=== PATIENT | male | born 1955 | race Caucasian/White ===

== ENCOUNTER → 2017-04-24 07:11 | Outpatient (CLI) | payer OTHER, SELFPAY ==
--- NOTE | 2017-04-24 07:18 | XR_ITS ---
XR chest 2V HISTORY: ITS.REASON: COUGH ORDERING PHYSICIAN: Kylie Browning MD PATIENT AGE: 61 years COMPARISON: 12/01/2012 FINDINGS: The cardiomediastinal silhouette and pulmonary vascularity are within normal limits. The lungs are clear without infiltrates, suspicious nodules, or pleural effusions. No acute bony abnormalities. IMPRESSION: Negative chest, no acute finding
== END ==
PROVIDERS: PCP Family Medicine; Visit Provider Family Medicine
DX: R05 Cough (principal)
CPT/HCPCS: 71046

== ENCOUNTER 2017-11-17 03:50 | Observation (INO) ==
--- NOTE | 2017-11-17 04:18 | Emergency Department Note ---
ED Disposition Clinical Impression: Renal colic on right side, Pancreatitis, Hyperglycemia due to type 2 diabetes mellitus Disposition: Admitted As Inpatient Condition on Discharge: Fair Instructions: DI for Acute Abdomen Referrals: Kylie Browning MD [Primary Care Provider] - - Critical Care Critical Care Time: No Attestation: On 11/17/17, the high probability of a clinically significant, sudden or life threatening deterioration of the following system(s) required my full and direct attention, intervention and personal management. The time I documented below is in addition to time spent performing reported procedures but includes the following listed in this critical care notation. Medical Decision Making - Medical Records Medical records reviewed: Yes: I reviewed the patient's medical records. - Ryan Inquiry Pt receiving controlled substance: No Ryan was queried for this patient: No Reason not queried -: Emergent pt cond-no time Vital Signs: 11/17/17 03:56 11/17/17 05:22 11/17/17 06:04 Pulse Rate [Right Brachial] 75 91 H 103 H Respiratory Rate 14 14 18 Blood Pressure [Right Arm] 180/115 151/80 158/93 Blood Pressure Mean [Right Arm] 136 103 114 Blood Pressure Source [Right Arm] Automatic Cuff Automatic Cuff Blood Pressure Position [Right Arm] Sitting Sitting 02 Sat by Pulse Oximetry 98 98 93 L Oxygen Delivery Method Room Air Room Air - Lab Data Lab Results 11/17/17 04:02: WBC 7.4, RBC 4.67, Hgb 13.3 L, Hct 41.4 L, MCV 88.6, MCH 28.5, MCHC 32.2, RDW 13.0, Plt Count 231, MPV 7.4, Neut % (Auto) 62.4, Lymph % (Auto) 30.1, [place] % (Auto) 5.3, Eos % (Auto) 1.4, Baso % (Auto) 0.8, Neut # (Auto) 4.6, Lymph # (Auto) 2.2, [place] # (Auto) 0.4, Eos # (Auto) 0.1, Baso # (Auto) 0.1 11/17/17 04:02: Sodium 137, Potassium 3.2 L, Chloride 102, Carbon Dioxide 25, Anion Gap 13.2, BUN 20 H, Creatinine 1.25, Estimated Creat Clear 73, Estimated GFR 58 L, Est GFR ( Amer) 70, Glucose 263 H, Calcium 8.6, Total Bilirubin 0.3, AST 13 L, ALT 31, Alkaline Phosphatase 134 H, Total Protein 6.3 L, Albumin 3.5, Globulin 2.8, Albumin/Globulin Ratio 1.3, Amylase 101, Lipase 947 H 11/17/17 04:02: Lactate 2.3 H Result diagrams: 11/17/17 04:02 11/17/17 04:02 Orders (Tests/Meds): ED MEDICATIONS Generic Name Dose Route Start Last Admin Trade Name Freq PRN Reason Stop Dose Admin Lactated Ringer's 1,000 mls @ 999 mls/hr 11/17/17 06:00 11/17/17 05:55 Lactated Ringer's 1000 Ml Bag IV 11/17/17 07:00 999 mls/hr .Q1H1M LISSETTE Administration Discontinued Medications Generic Name Dose Route Start Last Admin Trade Name Freq PRN Reason Stop Dose Admin Lactated Ringer's 1,000 mls @ 999 mls/hr 11/17/17 04:15 11/17/17 04:06 Lactated Ringer's 1000 Ml Bag IV 11/17/17 05:15 999 mls/hr .Q1H1M LISSETTE Administration Ketorolac Tromethamine 30 mg 11/17/17 04:13 11/17/17 04:52 Toradol 30mg/Ml Vial IV 11/17/17 04:14 30 mg ONCE ONE Administration Morphine Sulfate 4 mg 11/17/17 04:05 11/17/17 04:06 Morphine 4mg/Ml Syringe IV 11/17/17 04:06 4 mg ONCE ONE Administration Morphine Sulfate 4 mg 11/17/17 05:45 11/17/17 05:57 Morphine 4mg/Ml Syringe IV 11/17/17 05:46 4 mg ONCE ONE Administration Ondansetron HCl 4 mg 11/17/17 04:03 11/17/17 04:06 Zofran 4mg/2ml Vial IV 11/17/17 04:04 4 mg ONCE ONE Administration ORDERS Category Date Time Status CT abdomen pelvis wo con Stat Cat Scan 11/17/17 04:03 Taken Urinalysis and Microscopic Stat Lab 11/17/17 04:03 Ordered Blood Culture Stat Micro 11/17/17 04:02 Received - CT Data CT Scan: Abdomen Time Received: 04:[address] Reviewed: Yes: I have reviewed the patient's CT results, I have viewed the radiologist's interpretation Findings Narrative: Mild right hydronephrosis a 3 mm stone is present in the right UVJ there is also nonobstructing right kidney stone rest of the exam is unremarkable Medical Decision Narrative: Differential diagnosis right renal colic acute appendicitis, testicular torsion Patient significantly improved with pain medication and IV hydration glucose is elevated to 265. Patient has elevated lipase which is unlikely to be due from the kidney stone no significant tenderness of the pancreas it is possible it is caused by metformin though this would be an unusual etiology. Patient discussed with Dr. Dias covering for Dr. Ocasio patient will be admitted to observation Abdominal Pain HPI - General Chief Complaint: Abdominal Pain Stated Complaint: abdominal pain;vomiting Time Seen by Provider: 11/17/17 04:00 Mode of Arrival: Ambulatory Limitations: No Limitations Description of Symptoms (Recalled from ER Triage Doc. by RN): Pt c/o right lower abd pain with nausea, vomiting - History of Present Illness HPI narrative: Patient complains of sudden pain at 1:30 in the morning in his right groin and some soreness in the right flank with nausea no previous history of renal colic no previous abdominal surgery previously healthy MD complaint: abdominal pain, flank pain Location: R flank Severity: severe - Related Data Home Medications Medication Instructions Recorded Confirmed Metformin HCl [Metformin 500mg 500 mg PO BID 11/17/17 11/17/17 Tablet] Allergies Allergy/AdvReac Type Severity Reaction Status Date / Time No Known Allergies Allergy Verified 11/17/17 04:01 [facility] History I have reviewed the patient's past medical history: Yes Medical History: Reports:: Diabetes Mellitus Type 2 Denies:: Cancer, Diabetes Mellitus Type 1, MRSA Amputation: No - 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 Alcohol Intake: never - Psychiatric History Expresses thoughts of harming self/others: None Suicide Plan Description: No Plan Family Hx:: Diabetes ROS Obtained: Yes Systems reviewed as appropriate & no additional complaints - Gastrointestinal Gastrointestingal: Reports: abdominal pain, nausea Physical Exam - General General appearance: alert, in distress Comment: In pain - Head Head exam: atraumatic, normocephalic, normal inspection - Eye Eye exam: Present: normal appearance, PERRL, EOMI - ENT ENT exam: Present: normal exam, normal oropharynx, mucous membranes moist, TM's normal bilaterally, normal external ear exam - Neck Neck exam: Present: normal inspection, full ROM, trachea midline. Absent: meningismus, lymphadenopathy - Chest Chest inspection: Present: normal inspection, symmetric chest wall rise. Absent: tenderness - Respiratory Respiratory exam: Present: normal lung sounds bilaterally. Absent: respiratory distress - Cardiovascular Cardiovascular exam: Present: regular rate, normal rhythm. Absent: JVD - Abdominal Exam Abdominal exam: Present: soft, normal bowel sounds. Absent: distention, tenderness, guarding Abdominal tenderness: Present: RLQ, moderate Comment: No inguinal hernias normal scrotal exam no tenderness - exam: Present: normal inspection, normal testicular lie. Absent: testicular tenderness, urethral discharge, scrotal swelling - Extremities Exam Extremities exam: Present: normal inspection, full ROM, normal capillary refill. Absent: calf tenderness - Back Exam Back exam: Present: normal inspection. Absent: tenderness - Neurological Exam Neurological exam: Present: alert, oriented X3 - Psychiatric Psychiatric exam: Present: normal affect, normal mood - Skin Skin exam: Present: warm, dry, intact, normal color - Lymphatic Lymphatic Findings: no adenopathy
[2017-11-17 04:25] LABS: Basophils # 0.1 K/mm3 (0-0.2); Basophils % 0.8 % (0.1-2.0); Eosinophils # 0.1 K/mm3 (0.0-0.4); Eosinophils % 1.4 % (0.1-12.0); Hematocrit 41.4 % (42.0-52.0); Hemoglobin 13.3 g/dL (14.1-18.0); Lymphocytes # 2.2 K/mm3 (0.7-4.5); Lymphocytes % 30.1 K/mm3 (10-50); Mean Corpuscular HGB Conc 32.2 g/dL (31.8-35.4); Mean Corpuscular Hemoglobin 28.5 pg (27.0-31.2); Mean Corpuscular Volume 88.6 fl (80-94); Mean Platelet Volume 7.4 fl (7.4-10.4); Monocytes # 0.4 K/mm3 (0.1-1.0); Monocytes % 5.3 % (1.7-9.3); Neutrophils # 4.6 K/mm3 (1.8-7.8); Neutrophils % 62.4 % (37.0-80.0); Platelet Count 231 K/mm3 (142-424); Red Blood Count 4.67 M/mm3 (4.60-6.20); White Blood Count 7.4 K/mm3 (4.8-10.8)
[2017-11-17 04:39] LABS: Albumin Level 3.5 gm/dL (3.4-5.0); Albumin/Globulin Ratio 1.3 (1.1-1.8); Anion Gap 13.2 mEq/L (5-15); Bilirubin,Total 0.3 mg/dL (0.2-1.0); Calcium 8.6 mg/dL (8.5-10.1); Globulin 2.8 gm/dl (1.3-3.2); Potassium 3.2 mmoL/L (3.5-5.1); Total Protein,Serum 6.3 gm/dL (6.4-8.2)
--- NOTE | 2017-11-17 07:02 | History & Physical Report ---
*Admission Date: 11/17/17 *Chief complaint: Abdominal pain *History of present illness: 62-year-old male with diabetes presented to the emergency department after awakening this morning at approximately 1:30 AM with acute onset of right-sided abdominal pain that began in the front of the abdomen and radiated around to the flank and down towards the testicle. Patient had no significant nausea but did vomit on the way to the emergency department. In the ER he was found to have a 3 mm obstructive kidney stone with mild hydronephrosis. Patient also found to have an elevated lipase level. Patient has been admitted for IV fluids, straining of urine, pain control. [facility] History I have reviewed the patient's past medical history: Yes Medical History: Reports:: Diabetes Mellitus Type 2 Denies:: Cancer, Diabetes Mellitus Type 1, MRSA Amputation: No - *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 Alcohol Intake: never - Psychiatric History Expresses thoughts of harming self/others: None Suicide Plan Description: No Plan *Family Hx:: Diabetes Review of Systems - Constitutional Denies body ache(s), Denies chills - *Cardiovascular Denies chest pain, Denies chest pain at rest - *Respiratory Denies cough, Denies shortness of breath - *Genitourinary Reports difficulty urinating, Denies painful urination, Denies blood in urine Meds Home Medications Medication Instructions Recorded Confirmed Type Metformin HCl [Metformin 500mg 500 mg PO BID 11/17/17 11/17/17 History Tablet] Allergies Allergy/AdvReac Type Severity Reaction Status Date / Time No Known Allergies Allergy Verified 11/17/17 04:01 Exam Vital signs and Labs for Last 24 Hours: Temp Pulse Resp BP Pulse Ox 98.5 F 103 H 20 162/90 97 11/17/17 06:30 11/17/17 06:30 11/17/17 06:30 11/17/17 06:30 11/17/17 06:30 Laboratory Results - last 24 hr 11/17/17 04:02: WBC 7.4, RBC 4.67, Hgb 13.3 L, Hct 41.4 L, MCV 88.6, MCH 28.5, MCHC 32.2, RDW 13.0, Plt Count 231, MPV 7.4, Neut % (Auto) 62.4, Lymph % (Auto) 30.1, [place] % (Auto) 5.3, Eos % (Auto) 1.4, Baso % (Auto) 0.8, Neut # (Auto) 4.6, Lymph # (Auto) 2.2, [place] # (Auto) 0.4, Eos # (Auto) 0.1, Baso # (Auto) 0.1 11/17/17 04:02: Sodium 137, Potassium 3.2 L, Chloride 102, Carbon Dioxide 25, Anion Gap 13.2, BUN 20 H, Creatinine 1.25, Estimated Creat Clear 73, Estimated GFR 58 L, Est GFR ( Amer) 70, Glucose 263 H, Calcium 8.6, Total Bilirubin 0.3, AST 13 L, ALT 31, Alkaline Phosphatase 134 H, Total Protein 6.3 L, Albumin 3.5, Globulin 2.8, Albumin/Globulin Ratio 1.3, Amylase 101, Lipase 947 H 11/17/17 04:02: Lactate 2.3 H I & O for Last 24 hours: Intake & Output 11/14/17 11/15/17 11/16/17 11/17/17 11:59 11:59 11:59 11:59 Weight 185 lb 8 oz Narrative: Patient is awake and alert sitting up in bed. Oropharynx is moist. Neck is without lymphadenopathy or carotid bruits. Lungs are clear to auscultation. Heart has a regular rate and rhythm. Abdomen is soft with slight epigastric tenderness, mild right lower quadrant tenderness. Back has right-sided CVA tenderness. Neurologically there are no deficits Assessment and Plan (1) Urinary tract obstruction by kidney stone Current visit: Yes Status: Acute Category: Medical Code(s): N20.0 - Calculus of kidney; N13.8 - Other obstructive and reflux uropathy (2) Ureterolithiasis Current visit: Yes Status: Acute Category: Medical Code(s): N20.1 - Calculus of ureter (3) Elevated lipase Current visit: Yes Status: Acute Category: Medical Code(s): R74.8 - Abnormal levels of other serum enzymes (4) Uncontrolled type 2 diabetes mellitus Current visit: Yes Status: Acute Category: Medical Code(s): E11.65 - Type 2 diabetes mellitus with hyperglycemia - Assessment and plan all Dx Assessment and Plan for all problems:: 1. IV fluids and IV narcotics for pain control. Strain urine 2. Repeat lipase in a.m. 3. Await official radiology report of patient's CT scan 4. Clear liquid diet. 5. Sliding scale insulin coverage
--- NOTE | 2017-11-17 07:27 | Pharmacy Consult Notes ---
[facility] Pharmacy VTE Monitoring - Patient Demographics Admission date: 11/17/17 Report Date: 11/17/17 Time: 07:27 Allergies/Adverse Reactions: Patient Allergies No Known Allergies Allergy (Verified 11/17/17 04:01) Height: 1.83 m Weight: 84.141 kg Patient Problems: Current Active Problems Renal colic on right side (Acute) Pancreatitis (Acute) Hyperglycemia due to type 2 diabetes mellitus (Acute) Ureterolithiasis (Acute) Urinary tract obstruction by kidney stone (Acute) Elevated lipase (Acute) Uncontrolled type 2 diabetes mellitus (Acute) - VTE Risk Labs: VTE Related Lab Results Hgb 13.3 g/dL (14.1-18.0) L 11/17/17 04:02 Hct 41.4 % (42.0-52.0) L 11/17/17 04:02 Plt Count 231 K/mm3 (142-424) 11/17/17 04:02 BUN 20 mg/dL (7-18) H 11/17/17 04:02 Creatinine 1.25 mg/dL (0.70-1.30) 11/17/17 04:02 Estimated Creat Clear 73 mL/min (0-300) 11/17/17 04:02 Was VTE Risk Assessment Performed: Yes VTE Score: 3 VTE Risk Level: Low Risk - Prophylaxis VTE Prophylaxis Ordered?: Yes Types of VTE Prophylaxis: TEDS Knee High Location of Applied Device: Bilateral Lower Extremeties - VTE Diagnosis Confirmed Treatment or plan recommended: Continue Current Treatment
--- NOTE | 2017-11-18 06:47 | Progress Note ---
Internal Medicine - PN: Subj *Date: 11/18/17 *Time: 06:46 Interval history: Patient had 2 episodes of right lower quadrant pain overnight as well as some burning with urination. Straining of the urine did not reveal kidney stone. He received morphine once for pain and Toradol once for pain. He did well with diet yesterday evening and admits he probably overate. Exam Vital signs and Labs for Last 24 Hours: Temp Pulse Resp BP Pulse Ox 98.3 F 87 16 109/84 99 11/18/17 04:00 11/18/17 04:00 11/18/17 04:00 11/18/17 04:00 11/18/17 04:00 Laboratory Results - last 24 hr 11/17/17 07:55: Lactate 1.2 11/17/17 11:17: POC Glucose 169 H 11/17/17 17:29: POC Glucose 111 H 11/17/17 21:03: POC Glucose 152 H 11/18/17 05:19: POC Glucose 165 H I & O for Last 24 hours: Intake & Output 11/15/17 11/16/17 11/17/17 11/18/17 11:59 11:59 11:59 11:59 Intake Total 3261 / 3261 Output Total 2980 / 2980 Balance 281 / 281 Weight 185 lb 8 oz Narrative: He is in no distress. Lungs are clear to auscultation. Heart has a regular rate and rhythm. Abdomen is soft with minimal right lower quadrant tenderness Assessment and Plan (1) Urinary tract obstruction by kidney stone Current visit: Yes Status: Acute Category: Medical Code(s): N20.0 - Calculus of kidney; N13.8 - Other obstructive and reflux uropathy (2) Ureterolithiasis Current visit: Yes Status: Acute Category: Medical Code(s): N20.1 - Calculus of ureter (3) Elevated lipase Current visit: Yes Status: Acute Category: Medical Code(s): R74.8 - Abnormal levels of other serum enzymes (4) Uncontrolled type 2 diabetes mellitus Current visit: Yes Status: Acute Category: Medical Code(s): E11.65 - Type 2 diabetes mellitus with hyperglycemia - Assessment and plan all Dx Assessment and Plan for all problems:: A KUB has been ordered. Consult Dr. Cobb for stone removal as clinically patient does not seem to have passed stone. He has been made n.p.o.
--- NOTE | 2017-11-18 14:45 | Progress Note ---
[facility] Anesthesia Checklist - Patient Identification Patient Identification: Arm Band - Structural Data Admitted From: Inpatient Planned Operative Procedure/s: right ureteroscopy with stone extraction and stent placement Consent for Planned Operative Procedure(s) Verified: Yes Verified Documents: Surgical Consent, History and Physical - NPO Status Verified Time NPO: 00:00 - Additional verifications Anesthesia Reactions: No - Airway Assessment C-Spine Mobility Assessed: Yes (mp2) TMJ Mobility Assessed: Yes Dentition: Good Dentition - Neurological Assessment Level of Consciousness: Awake, Alert - Anesthesia Plan Anesthesia Risk discussed: Yes Anesthesia Plan: Verified ASA Class: II Anesthesia Type: General [facility] History I have reviewed the patient's past medical history: Yes Medical History: Reports:: Diabetes Mellitus Type 2 Denies:: Cancer, Diabetes Mellitus Type 1, MRSA Laterality Cases: Bilateral: Tonsillectomy Other Surgeries: Yes: Colonoscopy, Other (back sx x2, ) Amputation: No - *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 Educational Level: Completed High School Smoking Status: Never smoker Alcohol Intake: never Alcohol Intake Frequency:: holidays/special occasions only Occupational Status: employed Housing: house Household Members: spouse - Psychiatric History Expresses thoughts of harming self/others: None Suicide Plan Description: No Plan *Family Hx:: Diabetes
--- NOTE | 2017-11-18 16:02 | Discharge Summary ---
General - General Admission date:: 11/17/17 Discharge date: 11/18/17 HPI HPI: 62-year-old male with diabetes presented to the emergency department after awakening this morning at approximately 1:30 AM with acute onset of right-sided abdominal pain that began in the front of the abdomen and radiated around to the flank and down towards the testicle. Patient had no significant nausea but did vomit on the way to the emergency department. In the ER he was found to have a 3 mm obstructive kidney stone with mild hydronephrosis. Patient also found to have an elevated lipase level. Patient has been admitted for IV fluids, straining of urine, pain control. Hospital Course Hospital Course: Patient was admitted and placed on NS at 150ml/hr and ordered both Toradol and morphine for pain. He required these infrequently. He did not pass the stone over james initial 24 hours of observation so Urology was consulted. On Nov 18 Dr. Cobb removed the stone and placed a stent which the patient will remove in 3 days. He was discharged home on the evening of Nov 18. Objective Vital signs: Temp Pulse Resp BP Pulse Ox 98.3 F 86 18 158/88 92 L 11/18/17 08:00 11/18/17 08:00 11/18/17 09:13 11/18/17 08:00 11/18/17 08:00 Results Labs on day of discharge: Labs from last 24 hours 11/18/17 11/18/17 11/17/17 06:40 05:19 21:03 POC Glucose 165 H 152 H Lipase 261 11/17/17 17:29 POC Glucose 111 H Lipase DS: Diagnosis - Discharge Diagnosis (1) Urinary tract obstruction by kidney stone Status: Acute (2) Ureterolithiasis Status: Acute (3) Elevated lipase Status: Acute (4) Uncontrolled type 2 diabetes mellitus Status: Acute Discharge Plan - Patient Discharge Instructions ACTIVITY: Continue current activity DIET: continue same diet - Follow up Plan Follow up with: Krystian Ocasio MD [Staff Physician] - 11/21/17 8:00 am Nolan Cobb MD [Staff Physician] - 12/09/17 Disposition: Home, Self-[facility] Medications: Home Medications Medication Instructions Recorded Confirmed Type Metformin HCl [Metformin 500mg 500 mg PO TID 11/17/17 11/17/17 History Tablet] Prescriptions/Medication Reconciliation: Continue Metformin HCl [Metformin 500mg Tablet] 500 mg PO TID
--- NOTE | 2017-11-18 16:41 | Progress Note ---
[facility] Anesthesia Record Part I Intake, IV Amount: 1,000 Estimated blood loss (mL): 0 Urine output (mL): 0 Blood Pressure: 132/85 SaO2: 95 Pulse Rate: 91 Respiratory Rate: 16 Temperature: 97.8 F Patient is:: Drowsy, Stable Stable to PACU at:: 16:35
--- NOTE | 2017-11-18 16:41 | Progress Note ---
[facility] Anesthesia Record Part II Discharge Time: 17:05 Destination: 2nd floor PACU nurse assessment reviewed?: Yes Patient Condition:: Good Anesthesia Complications:: None
--- NOTE | 2017-11-18 18:11 | Consult Report ---
*Admission Date: 11/17/17 *Chief complaint: Right ureteral stone *History of present illness: Patient was admitted yesterday with acute onset of right flank and right groin pain. He had a CT scan which demonstrated a 4 mm stone in his right ureterovesical junction. He had moderate hydronephrosis. He has a second 3 mm stone in his right kidney he has no documented previous stone history. He has had persistent pain requiring IV medication. We discussed observation versus proceeding with intervention. Due to the severity of his discomfort he would like to proceed with intervention. He had a follow-up KUB today which shows a stone likely to be in the same location. We discussed ureteroscopy. We d iscussed perioperative ureteral stent placement. [facility] History Medical History: Reports:: Diabetes Mellitus Type 2 Denies:: Cancer, Diabetes Mellitus Type 1, MRSA Laterality Cases: Bilateral: Tonsillectomy Other Surgeries: Yes: Colonoscopy, Other (back sx x2, ) Amputation: No - *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 Educational Level: Completed High School Smoking Status: Never smoker Alcohol Intake: never Alcohol Intake Frequency:: holidays/special occasions only Occupational Status: employed Housing: house Household Members: spouse - Psychiatric History Expresses thoughts of harming self/others: None Suicide Plan Description: No Plan *Family Hx:: Diabetes Meds Home Medications Medication Instructions Recorded Confirmed Type Metformin HCl [Metformin 500mg 500 mg PO TID 11/17/17 11/17/17 History Tablet] Allergies Allergy/AdvReac Type Severity Reaction Status Date / Time No Known Allergies Allergy Verified 11/17/17 04:01 Exam Vital signs and Labs for Last 24 Hours: Temp Pulse Resp BP Pulse Ox 97.8 F 87 14 137/89 94 L 11/18/17 17:15 11/18/17 17:15 11/18/17 17:15 11/18/17 17:15 11/18/17 17:15 Laboratory Results - last 24 hr 11/17/17 21:03: POC Glucose 152 H 11/18/17 05:19: POC Glucose 165 H 11/18/17 06:40: Lipase 261 11/18/17 16:43: POC Glucose 105 I & O for Last 24 hours: Intake & Output 11/15/17 11/16/17 11/17/17 11/18/17 23:59 23:59 23:59 23:59 Intake Total 1639 / 1639 2622 / 2622 Output Total 200 / 200 2780 / 2780 Balance 1439 / 1439 -158 / -158 Weight 84.141 kg Results - Labs 11/17/17 04:02 11/17/17 04:02 Laboratory Results - last 24 hr 11/17/17 21:03: POC Glucose 152 H 11/18/17 05:19: POC Glucose 165 H 11/18/17 06:40: Lipase 261 11/18/17 16:43: POC Glucose 105 Assessment and Plan (1) Urinary tract obstruction by kidney stone Current visit: Yes Status: Acute Category: Medical Code(s): N20.0 - Calculus of kidney; N13.8 - Other obstructive and reflux uropathy (2) Ureterolithiasis Current visit: Yes Status: Acute Category: Medical Code(s): N20.1 - Calculus of ureter (3) Elevated lipase Current visit: Yes Status: Acute Category: Medical Code(s): R74.8 - Abnormal levels of other serum enzymes (4) Uncontrolled type 2 diabetes mellitus Current visit: Yes Status: Acute Category: Medical Code(s): E11.65 - Type 2 diabetes mellitus with hyperglycemia
--- NOTE | 2017-11-18 18:16 | Operative Note ---
Date of procedure: 11/18/17 Pre-op Diagnosis:: Right ureteral vesicle junction calculus with hydronephrosis Post-op Diagnosis:: same Procedure performed:: Right ureteroscopy balloon dilation of right distal ureter, basket extraction of right distal ureteral stone and right ureteral stent placement intraoperative fluoroscopy Surgeon:: Nolan Cobb MD TANK WELDER:: Eriberto Ninfa Anesthesia: GETA Estimated blood loss (mL): 0 Clinical Note:: Patient presented to the emergency room yesterday with acute onset of right leg pain. He was found to have a 4 mm right distal ureteral stone. Due to persistence of his pain requiring IV pain medication he like to proceed with ureteroscopy and stone removal. 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 The genital area was prepped and draped in standard fashion. A 22 Nauruan cystoscopy sheath was introduced with a 30 degree lens. The urethra appeared normal. His prostate probably obstructing bilaterally. Bladder was inspected and no evidence of stone within the bladder. His right transmural ureter was enlarged. I initially introduced a 0.05 zip wire into the right ureteral orifice. The wire would not easily advance and therefore the cystoscopy was aborted. The semirigid ureteroscope was then introduced under visualization. The wire was then passed through the ureteroscope and then manipulated into the ureteral orifice past the stone and advanced to the level of the kidney. The ureter was then withdrawn and replaced into the bladder alongside the wire. The transmural ureter had a tight band present and would not easily and safely accommodate the scope. I therefore removed the scope once again. A 15 Nauruan 4 cm length balloon dilating system was passed over the wire and station in the transmural ureter. Fluoroscopically it was not inflated to 12 neri. This was left in place for a moment deflated and then removed. The ureteroscope was then reinserted. The ureter was nicely dilated. The scope was advanced up to the stone easily. There is no perforation. The stone was engaged in a 1.90 to have not now back and extracted primarily. The wire was then used to place the ureteral stent. A 6 Nauruan by 28 cm double-J stent was placed over the wire fluoroscopically. There was a nice coil in the kidney and a core the bladder. Bladder was drained. The string was secured to the pain is Tegaderm. Xylocaine jelly was instilled in urethra. He was transferred to postop recovery room extubated in stable condition. Condition: stable Disposition: PACU Specimens:: Ureteral stone Complications:: None, he is given a prescription for Bactrim double strength twice daily for 1 week. Also a prescription for Holton 7.5 mg #20 and Pyridium 200 mg 3 times daily for 5 days. He will follow-up with me in 3 weeks.
== END 2017-11-18 08:20 | disposition home or self-care (01) ==
LOC: ER 03:50 → 2ND 03:50
PROVIDERS: ADMIT Emergency Medicine; ATTEND Family Medicine

== ENCOUNTER → 2017-12-16 08:18 | Outpatient (CLI) | payer OTHER, SELFPAY ==
--- NOTE | 2017-12-16 | CA_ITS ---
PROCEDURE: 2-D M-mode and color Doppler study INDICATIONS FOR THE TEST: Chest pain+ COPD Heart Murmur Tobacco Smoking Palpitations Fatigue Syncope Edema Hypertension Diabetes Mellitus+ Rheumatic Fever SOB+CHAVEZ Obesity Hyperlipidemia Family History HD Additional History TB, KIDNEY STONES PATIENT INFORMATION HEIGHT: 72 WEIGHT:189 GENDER: Male B/P:166/87 2-D/M-MODE INTERPRETATION: 2-D MEASUREMENTS OBSERVED VALUES IN CMS Right Ventricular Dimension (RVDd) 2.1 Interventricular Septum (Thickness)(IVsd) 1.6 Left Ventricular Internal Dimensions(LVIDd) 5.1 Left Ventricular Posterior Wall (Thickness)(LVPWd) 0.9 Aortic Root 3.9 Aortic Cusp Separation 2.3 Left Atrial Dimensions (LAD) 3.5 2D 1. Left atrium is qualitatively mildly enlarged, left ventricle is normal size, mild concentric left ventricular hypertrophy, visually estimated ejection fraction 55% with no regional wall motion abnormality. 2. The right atrium and right ventricle are normal size and contractility. 3. The aortic, mitral and tricuspid valvular grossly normal. 4. The pulmonic valve is poorly visualized. 5. No significant pericardial effusion noted. DOPPLER INTERROGATION: Doppler interrogation of the aortic, mitral and tricuspid valvular presence of mild mitral and tricuspid regurgitation, tricuspid regurgitation jet velocity is inadequate for calculation of the right ventricular systolic pressure, grade 1 diastolic dysfunction seen with tissue Doppler evidence of raised left atrial pressure. CONCLUSION: 1. Mildly enlarged left atrium, normal left ventricular size, mild concentric left ventricular hypertrophy, visually estimated ejection fraction of 55% with no regional wall motion abnormality, grade 1 diastolic dysfunction seen with tissue Doppler evidence of raised left atrial pressure. 2. Mild mitral and tricuspid regurgitation 3. No significant pericardial effusion noted.
== END ==
PROVIDERS: Family Provider Family Medicine; PCP Family Medicine; Visit Provider Family Medicine
DX: I20.8 Other forms of angina pectoris (principal); R06.09 Other forms of dyspnea
CPT/HCPCS: 93306

== ENCOUNTER → 2018-01-09 09:05 | Outpatient (CLI) | payer OTHER, SELFPAY | PROVIDERS: PCP Family Medicine; Visit Provider Family Medicine | DX: I20.8 Other forms of angina pectoris (principal); I10 Essential (primary) hypertension | CPT/HCPCS: 93017 ==

== ENCOUNTER → 2018-05-29 08:51 | Outpatient (CLI) | payer MEDICARE, SELFPAY ==
--- NOTE | 2018-05-29 09:03 | XR_ITS ---
XR KUB Ordering Physician: Nolan Cobb MD Patient Age: 63 years: Male HISTORY: ITS.REASON: renal stones TECHNIQUE: Supine abdomen, KUB. COMPARISON :Previous KUB 11/18/[address] abdomen October 2017 FINDINGS Nonspecific bowel gas pattern. . No organomegaly. Lung bases clear. Left kidney. No discrete calculi at the left kidney Right kidney. The tiny calculus at lower pole calyx faintly only question is seen. It was merely 2 mm size. Pelvic basin. Numerous phleboliths at the pelvic basin. The patient previously had a right UVJ stone. However I cannot discern site from phlebolith at this point. I favor these are phleboliths overall. Correlation clinically required .
== END ==
PROVIDERS: PCP Family Medicine; Visit Provider Urology
DX: N20.0 Calculus of kidney (principal)
CPT/HCPCS: 74018

== ENCOUNTER → 2018-09-01 08:02 | Outpatient (POV) | payer MEDICARE, SELFPAY | PROVIDERS: Visit Provider Dermatology | DX: Z00.00 Encounter for general adult medical examination without abnormal findings (principal) ==

== ENCOUNTER → 2018-10-13 07:56 | Outpatient (POV) | payer MEDICARE, SELFPAY | PROVIDERS: Visit Provider Dermatology | DX: Z00.00 Encounter for general adult medical examination without abnormal findings (principal) ==

== ENCOUNTER → 2018-11-02 12:51 | Outpatient (CLI) | payer MEDICARE, SELFPAY ==
--- NOTE | 2018-11-02 13:02 | XR_ITS ---
PROCEDURE: XR CHEST 2V CLINICAL HISTORY: BRONCHITIS Shortness of breath COMPARISON: CXR CHEST(2 VIEWS-NOT PORTABLE) from 12/01/2012 CXR2V XR chest 2V from 04/24/2017 FINDINGS: The cardiomediastinal silhouette and pulmonary vascularity are within normal limits. The lungs are clear without infiltrates, suspicious nodules, or pleural effusions. No acute bony abnormalities. IMPRESSION: No acute findings. Dictated by: Hansel Montenegro MD 11/02/2018 14:56 Electronically signed by Hansel Montenegro MD in [place] 11/02/2018 14:56
--- NOTE | 2018-11-02 13:02 | XR_ITS ---
PROCEDURE: XR KUB CLINICAL INDICATION: kidney stones COMPARISON: KUB XR KUB from 05/29/2018 FINDINGS: No renal calculi evident. There are multiple pelvic calcifications which are present and may be due to phleboliths. In the right lower aspect of the pelvis there is a small triangular shaped density which measures 12 by 4 mm etiology indeterminate possibly due to an overlying artifact. IMPRESSION: No renal or ureteral calculi. Small rectangular shaped density right pelvic region possibly due to overlying artifact. Dictated by: Hansel Montenegro MD 11/02/2018 14:20 Electronically signed by Hansel Montenegro MD in [place] 11/02/2018 14:20
== END ==
PROVIDERS: PCP Nurse Practitioner; Visit Provider Urology
DX: N20.0 Calculus of kidney (principal); J40 Bronchitis, not specified as acute or chronic
CPT/HCPCS: 71046; 74018

== ENCOUNTER → 2019-01-05 08:08 | Outpatient (POV) | payer MEDICARE, SELFPAY | PROVIDERS: Visit Provider Dermatology | DX: Z00.00 Encounter for general adult medical examination without abnormal findings (principal) ==

== ENCOUNTER → 2019-07-19 07:05 | Outpatient (CLI) | payer MEDICARE, SELFPAY ==
[2019-07-19 08:57] LABS: Coronavirus 19 IgG Antibody Negative (Negative); Coronavirus 19 IgM Antibody Negative (Negative)
== END ==
PROVIDERS: Visit Provider Surgery
DX: Z03.818 Encounter for observation for suspected exposure to other biological agents ruled out (principal)
CPT/HCPCS: 36415; 86328

== ENCOUNTER 2019-07-20 06:28 | Day surgery (SDC) | payer MEDICARE, SELFPAY ==
--- NOTE | 2019-07-14 09:59 | SUR.PREOP ---
07/14/2019 @ 1000--PHONE CALL MADE TO PATIENT. PATIENT UNDERSTANDS THAT LAB WORK AND COVID TESTING NEEDS TO BE COMPLETED @ 0700 ON 07/19/2019. PATIENT UNDERSTANDS IF LAB WORK AND COVID-19 TESTS ARE NOT COMPLETED BY 12PM ON THAT DATE, THE SURGERY SCHEDULED WILL BE CANCELLED AND RESCHEDULED FOR ANOTHER TIME.
[2019-07-15 14:46] VITALS: BMI 23.7
[2019-07-20 07:02] VITALS: BP 124/80; PULSE 88; RESP 18; TEMP 36.7; O2SAT 96
--- NOTE | 2019-07-20 07:23 | HMH.ANESCL ---
[facility] Anesthesia Checklist - Patient Identification Patient Identification: Arm Band, Verbal (Name & ) - Structural Data Admitted From: Home Planned Operative Procedure/s: Colonoscopy Consent for Planned Operative Procedure(s) Verified: Yes Verified Documents: Surgical Consent, History and Physical - NPO Status Verified Time NPO: 00:00 - Chart Verification Results Verified: None (negative COVID19 test) - Additional verifications Anesthesia Reactions: No - Airway Assessment C-Spine Mobility Assessed: Yes TMJ Mobility Assessed: Yes Dentition: Good Dentition (crowns) - Neurological Assessment Level of Consciousness: Awake, Alert, Appropriate, Follows Commands Hx Seizures: No Numbness or tingling in extremities: No - Anesthesia Plan Anesthesia Risk discussed: Yes Anesthesia Plan: Verified ASA Class: III Anesthesia Type: MAC [facility] History I have reviewed the patient's past medical history: Yes Medical History: Reports:: Diabetes Mellitus Type 2, Hyperlipidemia, Hypertension, Kidney Stones, Tuberculosis Denies:: Cancer, Diabetes Mellitus Type 1, Internal Pacemaker, MRSA, Seizures *Have you ever received a pneumonia vaccine?: Yes *Have you received a flu vaccine this season?: Yes Other Medical History: Reports: Arthritis Anesthesia experience/problems:: none Laterality Cases: Bilateral: Tonsillectomy Other Surgeries: Yes: Colonoscopy, Other. No: Pacemaker Amputation: No Fractures: No - *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 Educational Level: Completed High School Smoking Status: Never smoker Alcohol Intake: current Alcohol Intake Frequency:: a few times a month Substance Use Type: denies use *Occupational Status:: employed Housing: house Household Members: spouse *Travel in the last 8 weeks: None Family Hx:: Non-contributory
[2019-07-20 07:29] VITALS: O2SAT 98
[2019-07-20 07:53] VITALS: BP 105/67; PULSE 91; RESP 18; TEMP 36.1; O2SAT 94
--- NOTE | 2019-07-20 07:53 | HMH.SCOPE ---
- Procedure: Date: 07/20/19 Procedure Performed:: Total colonoscopy to terminal ileum Indications:: Patient is a 64-year-old male under the care of Dr. Browning referred for colonoscopy and rectal bleeding likely secondary to hemorrhoids. I had previously performed colonoscopy on him 3 years ago. At that time he did have some relatively unremarkable internal hemorrhoids and a rectosigmoid polyp. At that time he was having some occasional rectal bleeding. However he has had progressive symptoms with more significant rectal bleeding and has some pain and discomfort from symptoms consistent with hemorrhoid prolapse. He was started on some cream by Dr. Browning. Performing Provider:: Jose Bautista MD Referring Provider:: Guanakito Browning Sedation:: Propofol Procedure:: Patient was taken to endoscopy procedure room. He was positioned in a lateral decubitus position and adequate intravenous sedation was achieved with anesthesia titration of propofol. Digital examination was performed which revealed some palpable internal hemorrhoids. Variable stiffness Olympus colonoscope was inserted via the anus and advanced to the cecum. Ileocecal valve and appendiceal orifice were clearly identified. Colonoscope was advanced a short distance into the terminal ileum which appeared grossly normal. Colonoscope was withdrawn through the colon with careful surveillance. Within the rectum retroflexion was performed which revealed several hemorrhoid piles including both internal and external hemorrhoids. External hemorrhoids appeared to be more inflamed and irritated as likely the source of bleeding. Colonoscope was withdrawn Findings:: Internal and external hemorrhoids with evidence of possible prolapse Recommendations:: Hemorrhoids not amenable to simple banding through the colonoscope as he has both internal and external hemorrhoids with the external hemorrhoids being what appears to be the source of bleeding. I will have the patient return to the office and 1 or 2 weeks. May be amenable to surgical intervention with combination of hemorrhoidectomy and potential banding. Recommend repeat colonoscopy 5 years. Complications:: None Estimated blood obtained (mL): 0
[2019-07-20 08:03] VITALS: BP 122/75; PULSE 74; RESP 18; TEMP 36.1; O2SAT 94
[2019-07-20 08:13] VITALS: BP 103/64; PULSE 78; RESP 18; TEMP 36.1; O2SAT 94
[2019-07-20 08:25] VITALS: BP 113/73; PULSE 70; RESP 18; TEMP 36.1; O2SAT 94
[2019-07-20 20:40] LABS: POC Glucose,Bedside 162 (70-110)
== END 2019-07-20 08:25 | disposition home or self-care (01) ==
LOC: OUTP 06:30
PROVIDERS: PCP Family Medicine; Visit Provider Surgery
PROC: 0DJD8ZZ Inspection of Lower Intestinal Tract, Via Natural or Artificial Opening Endoscopic (ICD-10-PCS; principal; 2019-07-20 07:30)
DX: Z12.11 Encounter for screening for malignant neoplasm of colon (principal); Z87.19 Personal history of other diseases of the digestive system; K64.9 Unspecified hemorrhoids; Z79.82 Long term (current) use of aspirin; Z79.84 Long term (current) use of oral hypoglycemic drugs; Z79.899 Other long term (current) drug therapy; E10.9 Type 1 diabetes mellitus without complications; E78.5 Hyperlipidemia, unspecified; I10 Essential (primary) hypertension; M19.90 Unspecified osteoarthritis, unspecified site; Z86.11 Personal history of tuberculosis; Z87.39 Personal history of other diseases of the musculoskeletal system and connective tissue
CPT/HCPCS: G0121; 82962

== ENCOUNTER → 2020-10-12 07:51 | Outpatient (CLI) | payer MEDICARE, SELFPAY ==
[2020-10-12] VITALS (8 sets, daily range): BP systolic 103–125; BP diastolic 65–76; PULSE 83–101; RESP 14–18; TEMP 36.9; O2SAT 95–97
== END ==
PROVIDERS: PCP Family Medicine; Visit Provider Family Medicine
DX: U07.1 COVID-19 (principal)
CPT/HCPCS: 96365

== ENCOUNTER → 2021-01-23 10:57 | Outpatient (POV) | payer MEDICARE, SELFPAY | PROVIDERS: Visit Provider Dermatology | DX: Z00.00 Encounter for general adult medical examination without abnormal findings (principal) ==

== ENCOUNTER → 2021-12-25 08:39 | Outpatient (CLI) | payer MEDICARE, SELFPAY ==
--- NOTE | 2021-12-25 08:51 | XR_ITS ---
FINAL REPORT CLINICAL HISTORY: knee pain FINDINGS: LEFT KNEE Four views of the left knee were obtained. There is no acute fracture or dislocation. Visualized joint spaces are normally aligned. There are mild degenerative changes. Soft tissues are unremarkable. IMPRESSION: Mild degenerative changes with no acute bony abnormality. Reviewed, Interpreted and Dictated by Jose Rojo III, MD Transcribed by Laura Olmedo Authenticated and [facility]
--- NOTE | 2021-12-25 08:51 | XR_ITS ---
FINAL REPORT CLINICAL HISTORY: knee pain COMPARISON: 08/21/2016 FINDINGS: RIGHT KNEE 4 views of the right knee were obtained. There is no acute fracture or dislocation. Visualized joint spaces are normally aligned. There are mild degenerative changes. Soft tissues are unremarkable. IMPRESSION: Mild degenerative changes with no acute bony abnormality, stable. Reviewed, Interpreted and Dictated by Jose Rojo III, MD Transcribed by Laura Olmedo Authenticated and [facility]
== END ==
PROVIDERS: PCP Family Medicine; Visit Provider Orthopaedic Surgery
DX: M25.561 Pain in right knee (principal); M25.562 Pain in left knee
CPT/HCPCS: 73564

== ENCOUNTER 2022-06-09 12:33 | Emergency (ER) | payer MEDICARE, SELFPAY ==
[2022-06-09 12:50] VITALS: BP 131/77; PULSE 86; RESP 18; TEMP 36.6; O2SAT 100; BMI 23.1
--- NOTE | 2022-06-09 12:59 | EXP.UTC ---
Discharge Plan Disposition Patient Disposition: Home, Self-Care Condition: Good Prescriptions Prescriptions: New amoxicillin-pot clavulanate 875-125 mg Tablet 1 tab PO Q12H Qty: 20 0RF fluticasone propionate [Flonase Allergy Relief] 50 mcg/actuation spray,suspension 1 spray intranasal DAILY Qty: 16 0RF Rx Instructions: administer into each nostril benzonatate 100 mg capsule 100 mg PO TID PRN (Reason: cough) Qty: 30 0RF No Action lisinopril 10 mg tablet 10 mg PO DAILY atorvastatin 10 mg tablet 1 tab PO DAILY aspirin 81 mg tablet,delayed release (DR/EC) 81 mg PO DAILY metformin 500 MG tablet 500 mg PO TID Referrals Follow up/Referrals: Kylie Browning MD [Primary Care Provider] - See instructions Activity Restrictions/Add. Instructions Additional Instructions/Restrictions: *Monitor Temp, Over the counter Motrin or Tylenol as directed/as needed Tylenol every 4 hours and Motrin every 6 hours (as long as your family doctor has told you that you can take it) for fever or pain. and straight to ER if unable to lower temp less than 101.0 after medication given *Warm salt water gargles may help to soothe the throat *Throat Lozenges? *Warm fluids like tea with honey may help to soothe the throat? *Sleep elevated *Humidifier/Vaporizer Take medication as prescribed Follow up IMMEDIATELY for new or worsening symptoms or no Noticeable improvement over the next 48-72 hours. 911 for difficulty breathing or swallowing Clinical Impressions Clinical Impression: Bronchitis, Sinusitis Instructions Patient Instructions: DI for Sinusitis, Sinusitis, Acute Bronchitis Discharge ED Provider: Mary Alice Dempsey [facility] HPI General Stated complaint: Congestion, drainage, sore throat, ear pain Time Seen by Provider: 06/09/22 12:59 History of Present Illness Provider Complaint: Patient states that he has been having sinus pain and pressure, pain and fullness in both ears and sore throat for a couple weeks that has got worse States that he has taken OTC medications but hasnt helped much so today he wasnt feeling any better so he came in to get checked Related Data Home Medications Medication Instructions Recorded Confirmed metformin 500 mg tablet 500 mg PO TID Diabetes 11/17/17 06/09/22 lisinopril 10 mg tablet 10 mg PO DAILY Hypertension 12/09/17 06/09/22 aspirin 81 mg tablet,delayed 81 mg PO DAILY HEART 07/12/19 06/09/22 release atorvastatin 10 mg tablet 1 tab PO DAILY Cholesterol 07/12/19 06/09/22 Previous Rx's Medication Instructions Recorded amoxicillin 875 mg-potassium 1 tab PO Q12H #20 tabs 06/09/22 clavulanate 125 mg tablet benzonatate 100 mg capsule 100 mg PO TID PRN cough #30 caps 06/09/22 fluticasone propionate 50 1 spray intranasal DAILY #16 grams 06/09/22 mcg/actuation nasal spray,suspension (Flonase Allergy Relief) Allergies Allergy/AdvReac Type Severity Reaction Status Date / Time No Known Allergies Allergy Verified 02/08/22 10:14 [facility] Disclaimer: The information contained in this section may have been updated after the patient was seen, as this information can be updated by other users. 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 Smoking Status: Never smoker second hand exposure: No alcohol intake: current substance use type: denies use current occupational status: employed Travel in the last 8 weeks: None household members: spouse housing: house current occupational exposures/hazards: No caffeine: Yes ROS Obtained: Yes All systems reviewed & no additional complaints except as documented and Yes Systems reviewed as appropriate & no additional complaints except as documented Constitutional Constitutional: Reports system reviewed and no additional complaints, except as documented, Reports as per HPI and Reports headache(s) ENT Ears, Nose, Mouth, and Throat: Reports syst
[2022-06-09 13:20] VITALS: BP 131/77; PULSE 86; RESP 18; TEMP 36.6; O2SAT 100
== END 2022-06-09 13:23 | disposition home or self-care (01) ==
PROVIDERS: Emergency Provider Nurse Practitioner; PCP Family Medicine
DX: J20.9 Acute bronchitis, unspecified (principal); J01.90 Acute sinusitis, unspecified; E11.9 Type 2 diabetes mellitus without complications; I10 Essential (primary) hypertension; Z79.84 Long term (current) use of oral hypoglycemic drugs
CPT/HCPCS: 99212; 99214; G0463

== ENCOUNTER → 2022-06-19 09:50 | Outpatient (CLI) | payer MEDICARE, SELFPAY ==
--- NOTE | 2022-06-19 09:55 | XR_ITS ---
FINAL REPORT CLINICAL HISTORY: COUGH,POSITIVE TB TEST,H/O TB COMPARISON: 04/24/2017 FINDINGS: Two views of the chest were obtained. The heart size and pulmonary vascularity are within normal limits. The mediastinum is normal. No acute pulmonary abnormality is identified. There is no active mycobacterial/fungal disease There is no pneumothorax. The bony thorax is intact. IMPRESSION: No active mycobacterial/fungal disease. Reviewed, Interpreted and Dictated by Jose Rojo III, MD Transcribed by Angie Cline Authenticated and [facility]
== END ==
PROVIDERS: PCP Internal Medicine; Visit Provider Internal Medicine
DX: R05.9 Cough, unspecified (principal); R76.11 Nonspecific reaction to tuberculin skin test without active tuberculosis; Z86.11 Personal history of tuberculosis
CPT/HCPCS: 71046

== ENCOUNTER 2023-04-30 08:53 | Outpatient (CLI) | payer MEDICARE, SELFPAY ==
--- NOTE | 2023-04-30 | XR_ITS ---
FINAL REPORT CLINICAL HISTORY: METAL IN EYE COMPARISON: None FINDINGS: ORBITS Look up and look down views were obtained. No fracture is identified. The sinuses are clear. No radiopaque foreign body is identified. IMPRESSION: No radiopaque foreign body identified. Reviewed, Interpreted and Dictated by Jose Rojo III, MD Transcribed by Renee Fisher Authenticated and [facility]
--- NOTE | 2023-04-30 08:54 | MR_ITS ---
FINAL REPORT CLINICAL HISTORY: Lt Knee Pain FINDINGS: Multiplanar MR imaging of the right knee was performed without contrast. A small tear is seen of the posterior horn of the medial meniscus. A tear is also seen of the body and posterior horn of the lateral meniscus. The anterior and posterior cruciate ligaments are intact. The medial collateral ligament and lateral ligamentous complex are intact. The distal quadriceps tendon is intact. There is mild distal patellar tendinitis. There is no evidence of fracture. Focal moderate chondromalacia is noted of the lateral patellar facet. A small joint effusion is seen. The musculature is intact. No soft tissue mass or cyst is identified. IMPRESSION: Small tear of the posterior horn of the medial meniscus. Tear of the body and posterior horn of the lateral meniscus. 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 Authenticated and [facility]
== END 2023-04-30 23:59 ==
LOC: RAD 08:54
PROVIDERS: PCP Family Medicine; Visit Provider Orthopaedic Surgery
DX: M25.561 Pain in right knee (principal); M25.562 Pain in left knee; H05.53 Retained (old) foreign body following penetrating wound of bilateral orbits
CPT/HCPCS: 70200; 73721

== ENCOUNTER 2023-08-03 11:29 | Emergency (ER) | payer MEDICARE, SELFPAY ==
[2023-08-03 12:05] VITALS: BP 129/84; PULSE 89; RESP 18; TEMP 36.9; O2SAT 97; BMI 23.6
[2023-08-03 12:29] LABS: UTC Influenza A Antigen Negative (Negative); UTC Influenza B Antigen Negative (Negative)
[2023-08-03] MEDS: DEXAMETHASONE 4MG/ML 1ML VIAL 4 MG IM (12:50)
--- NOTE | 2023-08-03 12:55 | EXP.UTC ---
Discharge Plan Disposition Patient Disposition: Home, Self-Care Condition: Good Prescriptions Prescriptions: New azithromycin 250 mg tablet 250 mg PO DIRECTED Qty: 6 0RF Rx Instructions: Take two (2) tablets on day #1, then one (1) tablet day #2 thru #5 fluticasone propionate 50 mcg/actuation spray,suspension 1 spray intranasal DAILY Qty: 9.9 0RF No Action lisinopril 10 mg tablet 10 mg PO DAILY atorvastatin 10 mg tablet 1 tab PO DAILY aspirin 81 mg tablet,delayed release (DR/EC) 81 mg PO DAILY metformin 500 MG tablet 500 mg PO TID fluticasone propionate [Flonase Allergy Relief] 50 mcg/actuation spray,suspension 1 spray intranasal DAILY Qty: 16 0RF Rx Instructions: administer into each nostril Referrals Follow up/Referrals: Kylie Browning MD [Primary Care Provider] - See instructions Activity Restrictions/Add. Instructions Additional Instructions/Restrictions: Start antibiotic patient to take as ordered for a full length of time even if you feel better. Sinus infections do not get better overnight. It may take 2-3 days to notice much improvement so be sure to use conservative measures as discussed for symptoms. Flonase 1 spray each nostril daily to help with nasal congestion, sinus and ear pressure/information Increase fluids Humidifier/vaporizer as needed Tylenol and ibuprofen as needed for fever or pain. If symptoms do not improve or get worse return or be seen in the ER Follow-up with primary care this week Clinical Impressions Clinical Impression: Sinusitis Instructions Patient Instructions: DI for Sinusitis Discharge ED Provider: Annmarie ([facility] [[email or web address]])[facility] [place] General Stated complaint: runny nose, sore throat, congestion Mode of Arrival: Ambulatory Source of Information: Patient Limitations: No Limitations Time Seen by Provider: 08/03/23 12:55 Description of Symptoms (Recalled from Triage Doc. by RN): Pt's symptoms are productive cough, JUNIOR, and body aches. HEENT Symptoms (Recalled from RN notes): Yes Resp Symptoms (Recalled from RN notes): No Skin Symptoms (Recalled from RN notes): No MS Symptoms (Recalled from RN notes): No Functional Status (Recalled from RN notes): n/a History of Present Illness Provider Complaint: 68 yr old male presents for c/o productive cough, thick dark nasal drainage, JUNIOR, and body aches. Related Data Home Medications Medication Instructions Recorded Confirmed metformin 500 mg tablet 500 mg PO TID Diabetes 11/17/17 08/03/23 lisinopril 10 mg tablet 10 mg PO DAILY Hypertension 12/09/17 08/03/23 aspirin 81 mg tablet,delayed 81 mg PO DAILY HEART 07/12/19 08/03/23 release atorvastatin 10 mg tablet 1 tab PO DAILY Cholesterol 07/12/19 08/03/23 Previous Rx's Medication Instructions Recorded fluticasone propionate 50 1 spray intranasal DAILY #16 grams 06/09/22 mcg/actuation nasal spray,suspension (Flonase Allergy Relief) azithromycin 250 mg tablet 250 mg PO DIRECTED #6 tabs 08/03/23 fluticasone propionate 50 1 spray intranasal DAILY #9.9 mL 08/03/23 mcg/actuation nasal spray,suspension Allergies Allergy/AdvReac Type Severity Reaction Status Date / Time No Known Allergies Allergy Verified 08/03/23 12:23 Worker's Comp Is this a Worker's Comp case?: No [facility] Disclaimer: The information contained in this section may have been updated after the patient was seen, as this information can be updated by other users. 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 (Reviewed 08/03/23 @ 12:56 by Ananya Anguiano ([facility] [[email or web address]]), DENTURE TECHNICIAN) Smoking Status: Never smoker second hand exposure: No alcohol intake: current alcohol intake frequency: a few times a month substance use type: denies use current occupational status: employed Travel in the last 8 weeks: None household members: spouse housing: house current occupational exposures/hazards: No caffeine: Yes ROS Obtained: Yes All systems reviewed & no additional complaints except as documented Constitutional Constitutional: Reports system reviewed and no additional complaints, except as documented, Reports as per HPI and Reports headache(s) Eyes Eyes: Reports system reviewed and no additional complaints, except as documented ENT Ears, Nose, Mouth, and Throat: Reports system reviewed and no additional complaints, except as documented, Reports as per HPI, Reports headache(s), Reports nasal congestion, Reports nasal discharge, Reports sinus pain and Reports sinus pressure Cardiovascular Cardiovascular: Reports system reviewed and no additional complaints, except as documented Respiratory Respiratory: Reports system reviewed and no additional complaints, except as documented, Reports as per HPI, Reports change in phlegm color, Reports chest congestion and Reports cough Musculoskeletal Musculoskeletal: Reports system reviewed and no additional complaints, except as documented Integumentary/Breasts Skin/Breast: Reports system reviewed and no additional complaints, except as documented Neurologic Neurologic: Reports system reviewed and no additional complaints, except as documented and Reports headache(s) Hematologic/Lymphatic Henatologic/Lymphatic: Reports system reviewed and no additional complaints, except as documented Allergic/Immunologic Allergic/Immunologic: Reports system reviewed and no additional complaints, except as documented Physical Exam General General appearance: alert and in no apparent distress Eye Eye exam: Present normal appearance ENT ENT exam: Present mucous membranes moist and TM's normal bilaterally Expanded ENT Exam Nose exam: Present sinus tenderness Respiratory Respiratory exam: Present normal lung sounds bilaterally Cardiovascular Cardiovascular exam: Present regular rate and normal rhythm Neurological Exam Neurological exam: Present alert and oriented X3 Skin Skin exam: Present warm and intact Medical Decision Making Medical Records Medical records reviewed: Yes I reviewed the patient's medical records. Ryan Inquiry Pt receiving controlled substance: No Ryan was queried for this patient: No Vital Signs: 08/03/23 12:05 Temperature 98.4 F Temperature Source Oral Pulse Rate [Right Radial] 89 Respiratory Rate 18 Blood Pressure [Right Arm] 129/84 Blood Pressure Mean [Right Arm] 99 Blood Pressure Source [Right Arm] Automatic Cuff Blood Pressure Position [Right Arm] Sitting 02 Sat by Pulse Oximetry 97 Oxygen Delivery Method Room Air Lab Data Lab results reviewed: Yes I reviewed the patient's lab results. Lab Results 08/03/23 12:27: Influenza Type A Ag Negative, Influenza Type B Ag Negative Orders (Tests/Meds): ED MEDICATIONS Generic Name Dose Route Start Last Admin Trade Name Freq PRN Reason Stop Dose Admin Dexamethasone Sodium Phosphate 4 mg 08/03/23 12:45 08/03/23 12:50 Dexamethasone 4mg/Ml 1ml Vial IM 08/03/23 12:46 4 mg ONCE ONE Administration
[2023-08-03 13:06] VITALS: BP 129/84; PULSE 89; RESP 18; TEMP 36.9; O2SAT 97
== END 2023-08-03 13:06 | disposition home or self-care (01) ==
PROVIDERS: Emergency Provider Nurse Practitioner Family; PCP Family Medicine
DX: J01.90 Acute sinusitis, unspecified (principal); R05.9 Cough, unspecified; R51.9 Headache, unspecified; R09.81 Nasal congestion
CPT/HCPCS: 87804; 96372; 99212; 99214; G0463; J1100

== ENCOUNTER 2023-11-11 12:24 | Outpatient (CLI) | payer MEDICARE, SELFPAY ==
--- NOTE | 2023-11-11 12:33 | XR_ITS ---
FINAL REPORT TECHNIQUE: Chest PA & Lateral CLINICAL HISTORY: CERVICAL ARTHRITIS COMPARISON: 06/19/2022 FINDINGS: 2 views of the chest were performed. The heart size is normal. The mediastinum is within normal limits. There is no acute cardiopulmonary process. There are no pleural effusions. There is no pneumothorax. The bony thorax appears intact. IMPRESSION: No acute cardiopulmonary process. Reviewed, Interpreted and Dictated by Jero Valdez MD Transcribed by Melanie Gardner Authenticated and [facility]
--- NOTE | 2023-11-11 12:33 | XR_ITS ---
FINAL REPORT CLINICAL HISTORY: .cervical arthritis COMPARISON: None FINDINGS: CERVICAL SPINE 5 views were obtained. There is no acute fracture or malalignment. Inter-vertebral disc and vertebral body heights are preserved. Cervical lordosis is preserved. Facet joints are properly aligned. No significant degenerative changes are present. IMPRESSION: No acute process. Reviewed, Interpreted and Dictated by Jero Valdez MD Transcribed by Renee Fisher Authenticated and . [facility]
== END 2023-11-11 23:59 | disposition home or self-care (01) ==
LOC: RAD 12:28
PROVIDERS: PCP Family Medicine; Visit Provider Family Medicine
DX: M46.92 Unspecified inflammatory spondylopathy, cervical region (principal)
CPT/HCPCS: 71046; 72050

== ENCOUNTER 2023-12-19 18:01 | Emergency (ER) | payer MEDICARE, SELFPAY ==
[2023-12-19 18:46] VITALS: BP 130/83; PULSE 88; RESP 18; TEMP 36.6; O2SAT 95; BMI 21.7
--- NOTE | 2023-12-19 18:46 | ED_ITS ---
Discharge Plan Disposition Patient Disposition: Home, Self-Care Condition: Good Prescriptions Prescriptions: New cephalexin 500 mg capsule 500 mg PO QID 7 Days Qty: 28 0RF mupirocin 2 % ointment 1 applic topical TID 7 Days Qty: 15 0RF No Action lisinopril 10 mg tablet 10 mg PO DAILY atorvastatin 10 mg tablet 1 tab PO DAILY aspirin 81 mg tablet,delayed release (DR/EC) 81 mg PO DAILY metformin 500 MG tablet 500 mg PO TID azithromycin 250 mg tablet 250 mg PO DIRECTED Qty: 6 0RF Rx Instructions: Take two (2) tablets on day #1, then one (1) tablet day #2 thru #5 fluticasone propionate 50 mcg/actuation spray,suspension 1 spray intranasal DAILY Qty: 9.9 0RF fluticasone propionate [Flonase Allergy Relief] 50 mcg/actuation spray,suspension 1 spray intranasal DAILY Qty: 16 0RF Rx Instructions: administer into each nostril Referrals Follow up/Referrals: Kylie Browning MD [Primary Care Provider] - See instructions Activity Restrictions/Add. Instructions Additional Instructions/Restrictions: Keep the wound clean and dry. Apply the topical medication and take the cephalexin (keflex) as directed. Watch the wound for signs of infection, such as redness, swelling, drainage, f ever. etc. Take tylenol or ibuprofen for pain. Follow up with your regular doctor. GO TO THE ER FOR ANY WORSENING SYMPTOMS OR CONCERNS. Clinical Impressions Clinical Impression: Laceration of lower lip, Need for Tdap vaccination Instructions Patient Instructions: DI for Avulsion Laceration (Not Requiring Sutures), Cephalexin, Mupirocin, Tetanus, Diphtheria, Pertussis (Tdap) Vaccine Print Language Print Language: Thai Discharge ED Provider: nAselmo Boateng [facility] [place] H[place] General Stated complaint: AO 12/19/23 1745 laceration lower lip Time Seen by Provider: 12/19/23 18:46 History of Present Illness Provider Complaint: He states that earlier this afternoon he was using a air wrench to turn a socket when the socket came off and hit him on the bottom lips. Related Data Home Medications ?Medication ?Instructions ?Recorded ?Confirmed metformin 500 mg tablet 500 mg PO TID Diabetes 11/17/17 08/03/23 lisinopril 10 mg tablet 10 mg PO DAILY Hypertension 12/09/17 08/03/23 aspirin 81 mg tablet,delayed 81 mg PO DAILY HEART 07/12/19 08/03/23 release atorvastatin 10 mg tablet 1 tab PO DAILY Cholesterol 07/12/19 08/03/23 Previous Rx's ?Medication ?Instructions ?Recorded fluticasone propionate 50 1 spray intranasal DAILY #16 grams 06/09/22 mcg/actuation nasal spray,suspension (Flonase Allergy Relief) azithromycin 250 mg tablet 250 mg PO DIRECTED #6 tabs 08/03/23 fluticasone propionate 50 1 spray intranasal DAILY #9.9 mL 08/03/23 mcg/actuation nasal spray,suspension cephalexin 500 mg capsule 500 mg PO QID 7 days #28 caps 12/19/23 mupirocin 2 % topical ointment 1 applic topical TID 7 days #15 12/19/23 grams Allergies Allergy/AdvReac Type Severity Reaction Status Date / Time No Known Allergies Allergy Verified 08/03/23 12:23 [facility] Disclaimer: The information contained in this section may have been updated after the patient was seen, as this information can be updated by other users. 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 smoker second hand exposure: No alcohol intake: current alcohol intake frequency: a few times a month substance use type: denies use current occupational status: employed Travel in the last 8 weeks: None household members: spouse housing: house current occupational exposures/hazards: No caffeine: Yes ROS Obtained: Yes All systems reviewed & no additional complaints except as documented Constitutional Constitutional: Denies chills and Denies fever(s) Eyes Eyes: Denies eye discharge ENT Ears, Nose, Mouth, and Throat: Reports as per HPI, Denies dizziness, Denies otalgia and Denies sore throat Cardiovascular Cardiovascular: Denies chest pain Respiratory Respiratory: Denies shortness of breath, Denies chest congestion, Denies cough, Denies stridor and Denies wheezing Gastrointestinal Gastrointestingal: Denies nausea or vomiting Musculoskeletal Musculoskeletal: Reports system reviewed and no additional complaints, except as documented and Denies arthralgias Integumentary/Breasts Skin/Breast: Reports as per HPI and Denies rash Neurologic Neurologic: Denies dizziness and Denies paresthesias Allergic/Immunologic Allergic/Immunologic: Denies wheezing Physical Exam General General appearance: alert and in no apparent distress Head Head exam: atraumatic, normocephalic and normal inspection Eye Eye exam: Present normal appearance, PERRL and EOMI ENT ENT exam: Present mucous membranes moist, TM's normal bilaterally and normal external ear exam Expanded ENT Exam Nose exam: Absent sinus tenderness Nasal speculum exam: Bilateral: normal Mouth exam: Present laceration (avulsion laceration on lower lip that measures 1 cm square. no deep tissue injury. no deeper laceration. ) Teeth exam: Present normal inspection Throat exam: Present normal inspection Neck Neck exam: Present normal inspection, full ROM and trachea midline; Absent meningismus or lymphadenopathy Chest Chest inspection: Present normal inspection and symmetric chest wall rise; Absent tenderness Respiratory Respiratory exam: Present normal lung sounds bilaterally; Absent respiratory distress Cardiovascular Cardiovascular exam: Present regular rate and normal rhythm; Absent JVD Abdominal Exam Abdominal exam: Present soft and normal bowel sounds; Absent distention, tenderness or guarding Extremities Exam Extremities exam: Present normal inspection, full ROM and normal capillary refill; Absent calf tenderness Back Exam Back exam: Present normal inspection; Absent tenderness Neurological Exam Neurological exam: Present alert and oriented X3 Psychiatric Psychiatric exam: Present normal affect and normal mood Skin Skin exam: Present warm, dry, intact and normal color Lymphatic Lymphatic Findings: no adenopathy Medical Decision Making Medical Records Medical records reviewed: No I reviewed the patient's medical records. Screening: Per USPSTF and CDC recommendations, given the prevalence of disease in our region, it is our hospital?s policy to screen for HIV and viral Hepatitis for all patients aged 18 and over and those with ongoing risk factors. Ryan Inquiry Pt receiving controlled substance: No
[2023-12-19] MEDS: TET/DIPHTH/PERT-ADULT 0.5ML SYRINGE 0.5 ML IM (19:10)
[2023-12-19 19:19] VITALS: BP 130/83; PULSE 88; RESP 18; TEMP 36.6
== END 2023-12-19 19:26 | disposition home or self-care (01) ==
PROVIDERS: Emergency Provider Nurse Practitioner Family; PCP Family Medicine
DX: S01.511A Laceration without foreign body of lip, initial encounter (principal); W22.8XXA Striking against or struck by other objects, initial encounter
CPT/HCPCS: 90471; 90715; 99213; G0381

== ENCOUNTER 2024-03-12 14:01 | Outpatient (CLI) | payer MEDICARE, SELFPAY ==
--- NOTE | 2024-03-12 | US_ITS ---
FINAL REPORT CLINICAL HISTORY: LUMP ON NECK COMPARISON: None FINDINGS: Limited sonographic images were obtained of the soft tissues of the neck at the area of palpable abnormality. There is a solid mass in the midline neck in the suprasternal region. This mass measures 27 x 27 x 20 mm. It is unclear whether this is soft tissue, fatty, or much less likely complex cystic. No obvious adenopathy is noted. The visualized slight salivary glands are normal. IMPRESSION: Suprasternal mass. Recommend contrast-enhanced CT or MRI to further characterize. Reviewed, Interpreted and Dictated by Artie Santillan MD Transcribed by Melanie Gardner Authenticated and . [facility]
== END 2024-03-12 23:59 | disposition home or self-care (01) ==
LOC: RAD 14:02
PROVIDERS: PCP Family Medicine; Visit Provider Family Medicine
DX: R22.1 Localized swelling, mass and lump, neck (principal)
CPT/HCPCS: 76536

== ENCOUNTER 2024-05-04 12:53 | Outpatient (CLI) | payer MEDICARE, SELFPAY ==
--- NOTE | 2024-05-04 12:55 | CT_ITS ---
FINAL REPORT TECHNIQUE: Thin section axial CT images were obtained through the neck after intravenous contrast administration. Coronal and sagittal reformats were also obtained. This study was performed with techniques to keep radiation doses as low as reasonably achievable (ALARA). Individualized dose reduction techniques using automated exposure control or adjustment of mA and/or kV according to the patient's size were employed. CLINICAL HISTORY: LOCALIZED SWELLING states midsternal notch knot/swelling COMPARISON: None FINDINGS: CT SOFT TISSUES NECK WITH CONTRAST: The nasopharynx, oropharynx, hypopharynx and larynx are unremarkable. There is a fat attenuation structure in the suprasternal notch, measuring 2.8 cm in AP diameter and 4.1 cm in craniocaudal length, favor a lipoma. No cervical adenopathy is identified. The thyroid gland is unremarkable. The visualized sinuses are clear. There is no acute osseous abnormality. IMPRESSION: Fat attenuation structure in the suprasternal notch as described above, favor lipoma. No cervical adenopathy is present. Reviewed, Interpreted and Dictated by Jero Valdez MD Transcribed by Nikole Alvarado Authenticated and [facility]
[2024-05-04 13:25] LABS: Blood Urea Nitrogen 17 mg/dl (9-20); Estimated Glomerular Filt Rate 74 ml/min (>60); GFR (African American) 89 ML/MIN (>60)
[2024-05-04] MEDS: SODIUM CHLORIDE 0.9% 10ML SYR (RAD ONLY) 10 ML IV (13:52)
[2024-05-04] MEDS: IOPAMIDOL-370 (76%);100ML BOTTLE 75 ML IV (13:52)
== END 2024-05-04 23:59 | disposition home or self-care (01) ==
LOC: RAD 12:53
PROVIDERS: PCP Family Medicine; Visit Provider Otolaryngology
DX: R22.1 Localized swelling, mass and lump, neck (principal)
CPT/HCPCS: 36415; 70491; 82565; 84520; Q9967

== ENCOUNTER 2024-09-21 15:24 | Outpatient (CLI) | payer MEDICARE, SELFPAY | END 2024-09-21 23:59 | disposition home or self-care (01) | LOC: RT 15:25 | PROVIDERS: PCP Family Medicine; Visit Provider Nurse Practitioner | DX: I49.1 Atrial premature depolarization (principal); I47.19 Other supraventricular tachycardia; I49.3 Ventricular premature depolarization; I47.29 Other ventricular tachycardia | CPT/HCPCS: 93270 ==

== ENCOUNTER 2024-10-06 10:57 | Outpatient (CLI) | payer MEDICARE, SELFPAY ==
--- NOTE | 2024-10-06 | CA_ITS ---
APPROVED REPORT Exam: Pharmacologic Technologist: Keerthi Jordan Ht: 6 ft 0 in Wt: 177 lbs BSA: 2.02 m2 HR: 54 bpm BP: 151/79 mmHg Stress Test Details Test: Lexiscan HR Resting HR: 54 bpm Max Heart Rate (APMHR): 149.094659 bpm Max HR Achieved: 88 bpm Target HR (85% APMHR): 126.043044 bpm % of APMHR: 59.06 Recovery HR: 74 bpm BP Resting BP: 151.0/79.0 mmHg Max BP: 153.0/82.0 mmHg Recovery BP: 149.0/77.0 mmHg ECG Stress ECG Conclusion Symptoms: None Arrhythmias/Ectopy: Occasional PVCs ST-T Changes: Lexiscan Electronically signed by : Chata Varghese MD 10/06/2024 13:56:06
--- NOTE | 2024-10-06 11:15 | CA_ITS ---
APPROVED REPORT EXAM: Comprehensive 2D, Doppler, and color-flow Echocardiogram Dietitian Assistant: Zonia Pabon RDCS Ht: 6 ft 0 in Wt: 177lbs BSA: 2.02 BP: 130/59 mmHg Indications: ABN EKG CP M-Mode Dimensions RVDd 1.09 cm (0.9-2.6) LA Diam 3.96 cm (1.9-4.0) LVDd 5.75 cm (3.5-5.7) LVDs 4.18 cm (3.5-5.7) IVSd 0.60 cm (0.6-1.1) PWd 0.72 cm (0.6-1.1) EF (Teich) 52.40% FS 27.30% EDV (Teich) 163.30 mL TAPSE 2.18 (<1.7) ESV (Teich) 77.70 mL LV Diastology E Decel Time 270 (160-240 msec) E/A Ratio 0.9 Mitral Valve MV E Max Arturo. 54.0 (40-130 cm/s) MV A Velocity 63.0 (40-130 cm/s) E/A Ratio 0.85 MV PHT 79.0 ms Left Ventricle The left ventricle is normal size. Left ventricular systolic function is mildly reduced. There is normal left ventricular wall thickness. Grade 1 diastolic dysfunction. LVEF is 45% Right Ventricle The right ventricle is mildly dilated. The right ventricular systolic function is normal. Atria Left atrium is mildly dilated. Right atrium is mildly dilated. There is no color Doppler evidence of interatrial shunt. Aortic Valve The aortic valve is mildly thickened. There is no hemodynamically significant aortic valvular stenosis. Trace aortic regurgitation is present. Mitral Valve The mitral valve is normal in structure. No evidence of mitral valve stenosis. Trace mitral regurgitation is present. Tricuspid Valve The tricuspid valve leaflets are thin and pliable. Mild tricuspid regurgitation. RVSP is 20-25 mmHg. Pulmonic Valve The pulmonary valve is grossly normal in structure. Trace pulmonic valve regurgitation is present. Great Vessels The aortic root is normal in size. The ascending aorta is borderline dilated, measuring 3.7 cm in diameter. IVC is normal in size and collapses >50% with inspiration. Pericardium There is no pericardial effusion. Other Information Study Quality: Fair Conclusion Milldy reduced LV systolic function (LVEF 45%). Mild RV dilation with normal RV function. Mild biatrial dilation. Mild TR. The ascending aorta is borderline dilated, measuring 3.7 cm in diameter. Electronically signed by : Chata Varghese MD 10/06/2024 13:29:37
--- NOTE | 2024-10-06 12:00 | NM_ITS ---
APPROVED REPORT Exam: Nuclear Stress Test Indication: Chest pain, SOB, Fatigue, HTN, DM Patient Location: Outpatient Stress Tech: Keerthi Jordan NM Tech:Chanda Forde, ARRT, RT (R)(N) Ht: 6 ft 0 in Wt: 170 lbs HR: 54 bpm BP: 151/79 mmHg BSA: 1.99 m2 TID: 1.12 History: Chest pain, SOB, Fatigue, HTN, DM Procedure: Patient received 0.4 mg of intravenous Lexiscan, resting heart rate 54 bpm, resting blood pressure 151/79 mmHg, with Lexiscan maximum heart rate achieved was 91 bpm which is % of the maximum predicted heart rate and blood pressure was 153/82 mmHg. With Lexiscan, patient denied any complaint of chest pain. Cardiac Stress and Resting SPECT Images: Cardiac Stress and Resting SPECT images were obtained using technetium 99m Myoview 32.4 mCi stress and 10.81 mCi at rest. Resting and stress imaging in supine and prone positions demonstrate a large-sized, moderate, predominantly fixed perfusion defects in the inferior, septal, and inferoseptal LV delacruz. There is a region of reversibility towards the septal LV wall. Gated imaging demonstrates moderate reduction in global LV systolic function. There is severe hypokinesis of the septal and inferior LV delacruz. LVEF is calculated at 32%. Conclusion: Large-sized, moderate, predominantly fixed perfusion defects in the inferior, septal, and inferoseptal LV delacruz. There is a region of reversibility towards the septal LV wall. Findings are suggestive of partial reversible ischemia. Gated imaging demonstrates moderate reduction in global LV systolic function. There is severe hypokinesis of the septal and inferior LV delacruz. LVEF is calculated at 32%. Electronically signed by : Chata Varghese MD 10/06/2024 15:24:07
[2024-10-06] MEDS: SODIUM CHLORIDE 0.9% 10ML SYR (RAD ONLY) 10 ML IV ×2 (13:14)
[2024-10-06] MEDS: ISOTOPE MYOVIEW (PER STUDY) 1 DOSE IV (13:14)
== END 2024-10-06 23:59 | disposition home or self-care (01) ==
LOC: RT 10:58
PROVIDERS: PCP Family Medicine; Visit Provider Nurse Practitioner Family
DX: I07.1 Rheumatic tricuspid insufficiency (principal); I11.9 Hypertensive heart disease without heart failure; I77.810 Thoracic aortic ectasia; I49.3 Ventricular premature depolarization; I49.1 Atrial premature depolarization; E11.9 Type 2 diabetes mellitus without complications; R94.39 Abnormal result of other cardiovascular function study; R93.1 Abnormal findings on diagnostic imaging of heart and coronary circulation; R94.31 Abnormal electrocardiogram [ECG] [EKG]
CPT/HCPCS: 78452; 93016; 93017; 93018; 93306; A9502; J2785

== ENCOUNTER 2024-11-02 08:20 | Outpatient (CLI) | payer MEDICARE, SELFPAY ==
--- NOTE | 2024-11-02 08:45 | CT_ITS ---
FINAL REPORT TECHNIQUE: Axial imaging of the chest is obtained after the administration of contrast. 3-D MIP reformatted images were also obtained and reviewed per PE protocol. CLINICAL HISTORY: dilated ascending aorta to evaluate for thoracic a FINDINGS: The ascending aorta measures 33 mm, normal in caliber. There is no aortic aneurysm or dissection. Heart size is normal. There is no mediastinal, hilar, or axillary lymphadenopathy. The lungs are clear. There is no pleural or pericardial effusion. Limited evaluation of the upper abdomen is without acute abnormality. No acute osseous abnormality. IMPRESSION: Ascending aorta is normal in caliber without evidence of aneurysm or dissection. Reviewed, Interpreted and Dictated by Jazmin Goyal MD Transcribed by Tabitha Nicole Authenticated and [facility]
[2024-11-02 08:52] LABS: Blood Urea Nitrogen 22 mg/dl (9-20); Creatinine,Serum 1.10 mg/dl (0.66-1.25); Estimated Glomerular Filt Rate 66 ml/min (>60); GFR (African American) 80 ML/MIN (>60)
[2024-11-02] MEDS: SODIUM CHLORIDE 0.9% 10ML SYR (RAD ONLY) 10 ML IV (09:15)
[2024-11-02] MEDS: 0.9 % SODIUM CHLORIDE 50 ML VIAL IV (09:15)
[2024-11-02] MEDS: IOPAMIDOL-370 (76%);100ML BOTTLE 80 ML IV (09:15)
== END 2024-11-02 23:59 | disposition home or self-care (01) ==
LOC: RAD 08:21
PROVIDERS: PCP Family Medicine; Visit Provider Nurse Practitioner Family
DX: I20.89 Other forms of angina pectoris (principal); I50.20 Unspecified systolic (congestive) heart failure; R94.39 Abnormal result of other cardiovascular function study; R94.31 Abnormal electrocardiogram [ECG] [EKG]; I49.1 Atrial premature depolarization; I42.8 Other cardiomyopathies; I77.810 Thoracic aortic ectasia
CPT/HCPCS: 36415; 71275; 82565; 84520; Q9967

== ENCOUNTER 2024-11-08 08:45 | Day surgery (SDC) | payer MEDICARE, SELFPAY ==
[2024-11-08] VITALS (13 sets, daily range): BP systolic 114–147; BP diastolic 67–90; PULSE 55–83; RESP 18–20; O2SAT 90–98; BMI 23.8
--- NOTE | 2024-11-08 06:57 | IR_ITS ---
APPROVED REPORT Patient Location: Outpatient PROCEDURES Left heart catheterization Left ventriculogram Selective coronary angiogram Drug-eluting stent deployment to the proximal LAD INDICATION Coronary artery disease, Abnormal Myoview, Angina pectoris Informed consent was obtained prior to the procedure. COMPLICATIONS NONE Estimated Blood Loss: LESS THAN 10 ML TECHNIQUE One percent lidocaine used to anesthetize the right anterior aspect of the wrist. The right radial artery was accessed via the Seldinger technique. A 6 Portuguese sheath was placed in the right radial artery. 2.5 mg of Verapamil, 800 mcg of nitroglycerin, 1mg Lidocaine and 5000 U Heparin were given through the arterial sheath. The JL3 catheter was also used to perform left heart catheterization, left ventriculogram and selective coronary angiogram. At the end the diagnostic angiogram therapeutic Was administered given a therapeutic ACT and the guide catheter was placed in left main artery followed by Choice PT extra-support wire placed down the LAD and into the first septal rackman. A 4 mm x 12 mm Edwin frontier stent was deployed in the proximal segment at 20 neri reducing the stenosis to 0% ADRIANE-3 flow was present before and after the procedure. At the end the procedure the apparatus was removed the sheath was removed good hemostasis was achieved using TR banding patient was transferred to the postop boarding in stable condition. ANGIOGRAPHIC RESULTS The left main artery Normal The left anterior descending artery Has a proximal 50 to 60% stenosis The circumflex artery Is dominant gives rise to a large ramus intermedius. Both ramus and circumflex artery has mild 10% luminal regularities The right coronary artery Nondominant 10% luminal regularities The PAUL ventriculogram reveals Dilated ejection fraction 30 to 35% The left ventricular end-diastolic pressure 20 mmHg IMPRESSION Hemodynamically severe proximal LAD disease as described above Successful stenting the proximal 80 severe disease reduced to 0% with 1 drug-eluting stent Reduced ejection fraction Borderline elevated LVEDP PLAN 1. Dual antiplatelet therapy 2. GDMT for systolic heart failure 3. GDMT for ischemic heart disease 4. Reevaluate ejection fraction in 90 days to determine if patient is a candidate for AICD Electronically signed by : Jon Ramirez MD 11/08/2024 10:42:53
[2024-11-08 09:14] LABS: Hematocrit 42.7 % (42.0-52.0); Hemoglobin 14.5 g/dL (14.1-18.0); Immature Granulocytes % 0.2 %; Mean Corpuscular HGB Conc 34.0 g/dL (31.8-35.4); Mean Corpuscular Hemoglobin 30.0 pg (27.0-31.2); Mean Corpuscular Volume 88.4 fl (80-94); Nucleated Red Blood Cells % 0 %; Platelet Count 199 K/mm3 (142-424); Red Blood Count 4.83 M/mm3 (4.60-6.20); Red Cell Distribution Width-SD 43.3 fL; White Blood Count 6.4 K/mm3 (4.8-10.8)
[2024-11-08 09:24] LABS: Anion Gap 8.3 mEq/L (5-15); Blood Urea Nitrogen 19 mg/dl (9-20); Carbon Dioxide 30 mmol/L (22.0-30.0); Chloride 101 mmol/L (98-107); Creatinine Clearance Estimated 77 mL/min (50-200); Creatinine,Serum 1.00 mg/dl (0.66-1.25); Estimated Glomerular Filt Rate 74 ml/min (>60); GFR (African American) 89 ML/MIN (>60); Glucose 266 mg/dl (74-100); Potassium 4.3 mmoL/L (3.5-5.1); Sodium 135 mmol/L (136-145)
[2024-11-08 09:25] LABS: Calcium 9.4 mg/dl (8.4-10.2)
[2024-11-08] MEDS: HEPARIN 1,000 UNITS/500ML NS (CATH LAB) 3000 UNIT IV (10:16)
[2024-11-08] MEDS: VERAPAMIL 2.5MG/ML 2ML VIAL 2.5 MG IV (10:16)
[2024-11-08] MEDS: LIDOCAINE 1% 10ML MDV 10 ML IJ (10:17)
[2024-11-08] MEDS: NITROGLYCERIN 800MCG/8ML SYR (CATH LAB) 800 MCG IA (10:17)
[2024-11-08] MEDS: 0.9 % SODIUM CHLORIDE 500 ML 25 ML IV (10:17)
[2024-11-08] MEDS: HEPARIN 1,000 UNITS/ML 10ML VIAL (CATH LAB) 5000 UNIT IV (10:17)
[2024-11-08] MEDS: FENTANYL 100MCG/2ML VIAL 50 MCG IV (10:20)
[2024-11-08] MEDS: MIDAZOLAM HCL 1MG/ML 5ML VIAL 1 MG IV (10:20)
[2024-11-08] MEDS: PRASUGREL 10MG TAB 60 MG PO (11:02)
[2024-11-08] MEDS: IOPAMIDOL-370 (76%);100ML BOTTLE 90 ML IV (11:04)
[2024-11-08 11:18] LABS: CATHL Activated Clotting Time 276 SEC (74-125)
== END 2024-11-08 13:57 | disposition home or self-care (01) ==
PROVIDERS: PCP Family Medicine; Visit Provider Internal Medicine
PROC: 4A023N7 Measurement of Cardiac Sampling and Pressure, Left Heart, Percutaneous Approach (ICD-10-PCS; CPT 93452; principal; 2024-11-08 07:30)
DX: I25.118 Atherosclerotic heart disease of native coronary artery with other forms of angina pectoris (principal); I11.0 Hypertensive heart disease with heart failure; I50.20 Unspecified systolic (congestive) heart failure; R94.39 Abnormal result of other cardiovascular function study; R06.09 Other forms of dyspnea; R94.31 Abnormal electrocardiogram [ECG] [EKG]; I49.1 Atrial premature depolarization; I42.8 Other cardiomyopathies; I77.810 Thoracic aortic ectasia; E78.2 Mixed hyperlipidemia; Z79.82 Long term (current) use of aspirin; Z79.02 Long term (current) use of antithrombotics/antiplatelets; Z79.899 Other long term (current) drug therapy
CPT/HCPCS: 80048; 85025; 85347; 92928; 93458; 99152; C1725; C1769; C1874; C9600; J1200; J1644; J3010; J7040; Q9967

== ENCOUNTER 2024-12-06 08:57 | Outpatient (CLI) | payer MEDICARE, SELFPAY ==
[2024-12-06 09:40] LABS: Hematocrit 42.9 % (42.0-52.0); Hemoglobin 13.9 g/dL (14.1-18.0); Immature Granulocytes % 0.4 %; Mean Corpuscular HGB Conc 32.4 g/dL (31.8-35.4); Mean Corpuscular Hemoglobin 28.7 pg (27.0-31.2); Mean Corpuscular Volume 88.5 fl (80-94); Nucleated Red Blood Cells % 0 %; Platelet Count 200 K/mm3 (142-424); Red Blood Count 4.85 M/mm3 (4.60-6.20); Red Cell Distribution Width-SD 42.7 fL; White Blood Count 5.6 K/mm3 (4.8-10.8)
[2024-12-06 10:12] LABS: Chloride 102 mmol/L (98-107); Potassium 4.3 mmoL/L (3.5-5.1); Sodium 135 mmol/L (136-145)
[2024-12-06 10:15] LABS: Anion Gap 12.3 mEq/L (5-15); Blood Urea Nitrogen 24 mg/dl (9-20); Carbon Dioxide 25 mmol/L (22.0-30.0); Cholesterol 155 mg/dl (140-200); Creatinine,Serum 1.10 mg/dl (0.66-1.25); Estimated Glomerular Filt Rate 66 ml/min (>60); GFR (African American) 80 ML/MIN (>60); Triglycerides 59 mg/dl (30-150)
[2024-12-06 10:16] LABS: Calcium 9.0 mg/dl (8.4-10.2); Glucose 182 mg/dl (74-100); HDL Cholesterol 86 mg/dl (40-60)
== END 2024-12-06 23:59 | disposition home or self-care (01) ==
LOC: LAB 08:58
PROVIDERS: Internal Medicine; PCP Family Medicine; Visit Provider Nurse Practitioner Family
DX: I25.10 Atherosclerotic heart disease of native coronary artery without angina pectoris (principal); I10 Essential (primary) hypertension; E78.5 Hyperlipidemia, unspecified
CPT/HCPCS: 36415; 80048; 80061; 85025

== ENCOUNTER 2025-01-06 08:43 | Outpatient (CLI) | payer MEDICARE, SELFPAY ==
--- OUTSIDE RECORDS SUMMARY | 2025-01-06 08:46 | XMS_ITS | Data Portability ---
Author Organization [facility] Address [address] [place] [address] Assessment No assessment recorded. Plan of Treatment Reminders Order Date Submit Date Provider Last Modified By Organization Details Last Modified Time Details Appointments None record ed. Lab None record ed. Referral None record ed. Procedures None record ed. Surgeries None record ed. Imaging None record ed. Medication Orders None record ed. Patient TargetsNo targets recorded. Patient Instructions Encounter Date Encounter Id Patient Instructions Last Modified By Organization Details Last Modified Time 04/13/2024 [id number] 1. Ordered Bariu m swallow study 2. Ordered CT of the chest 3. F/u with results [email or web address] Not available 04/13/2024 15:26:25 Reason for Referral None Reported. Results Created Date Observation Date Name Description Value Unit Range Abnormal Flag Note LastModifiedBy Organization Detail LastModifiedTime 05/05/1905/04/2024 CT, neck, w/ contr ast No observ ation record ed. [email or web address] [facility] [address], [place], [address], 05/05/2024 08:05:47 Result Notes None recorded. Problems Name Problem SNOMED Code Status Onset Date Resolution Date Notes Provider Name and Address Organization Details Recorded Time Type 2 diabetes mellitus without complicat ion 411113266 Active 2015 From Automated Load;Provi rainer: Robert Yoon: Active Not Available [facility] 03:39:00 Incipient senile cataract 009901847 Active 2015 From Automated Load;Provi rainer: Robert Yoon: Active Not Available [facility] 7 03:39:00 Problem Notes None recorded. Medical Equipment None Reported. Allergies No known drug allergies Medications Name Sig Start Date Stop Date Status Note LastModified by Organization Details LastModified Time amoxicillin 500 mg capsule TAKE 1 CAPSULE BY MOUTH THREE TIMES DAILY FOR 10 DAYS 04/13 completed Not Available Not Available Not Available metformin 500 mg tablet TAKE 2 TABLETS BY MOUTH TWICE DAILY WITH A MEAL active Not Available Not Available No t Available atorvastati n 10 mg tablet TAKE 1 TABLET BY MOUTH DAILY active Not Available Not Available No t Available azithromyci n 250 mg tablet TAKE 2 TABLETS BY MOUTH ON DAY 1, AND THEN TAKE 1 TABLET BY MOUTH ONCE A DAY ON DAY 2 THROUGH DAY 5 04/13 completed Not Available Not Available Not Available hydrocodone 5 mg-acetamin ophen 325 mg tablet TAKE 1 TO 2 TABLETS BY MOUTH EVERY 4 TO 6 HOURS NEEDED DO NOT EXCEED 6 TABLETS IN 24 HOURS 04/13 completed Not Available Not Available Not Available pioglitazon e 45 mg tablet TAKE 1 TABLET BY MOUTH DAILY active Not Available Not Available No t Available cephalexin 500 mg capsule TAKE 1 CAPSULE BY MOUTH FOUR TIMES DAILY FOR 7 DAYS 04/13 completed Not Available Not Available Not Available dexamethaso ne 4 mg tablet TAKE 1 TABLET BY MOUTH ONCE DAILY 04/13 completed Not Available Not Available Not Available lisinopril 10 mg tablet TAKE 1 TABLET BY MOUTH EVERY DAY active Not Available Not Available No t Available mupirocin 2 % topical ointment APPLY TOPICALLY TO THE AFFECTED AREA THREE TIMES DAILY FOR 7 DAYS 04/13 completed Not Available Not Available Not Available ibuprofen 600 mg tablet TAKE 1 TABLET BY MOUTH THREE TIMES DAILY 04/13 completed Not Available Not Available Not Available fluticasone propionate 50 mcg/actuati on nasal spray,suspe nsion USE 1 SPRAY(S) IN EACH NOSTRIL ONCE DAILY active Not Available Not Available No t Available chlorhexidi ne gluconate 0.12 % mouthwash SWISH 15ML BY MOUTH FOR 30 SECONDS THEN SPIT TWICE DAILY active Not Available Not Available No t Available Vitals Date Recorded Body height Body mass index (BMI) Body weight Body temperature Heart rate Systolic And Diastolic Provider Name and Address Organization Details Last Updated DateTime 5 182.88 cm 23.8 kg/m2 00264.3 8 g 97.1 [degF] 85 /min 154/71 mm[Hg] Julia Corley [facility] 15:13:45 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 None recorded. Functional Status None recorded. Mental Status None recorded. Family History Relationship Description Onset Age of this Age Resolved Age Notes LastModified by Organization Details LastModified Time Father Hypertensive disorder spraria Not available 2024 15:15:51 Medical History Condition Response Arthritis Y Diabetes Y Past Encounters Encounter ID Performer Location Encounter Start Date Encounter Closed Date Diagnosis/Indication Diagnosis SNOMED-CT Code Diagnosis ICD10 Code Diagnosis IMO Codes Diagnosis Note [id number] DA LOW MD [facility] [address] [place] [address] 04/13/2024 13:35:53 04/13/2024 15:42:26 Dysphagia 75174694 R13.10 Feeling of lump in throat 513604703 R09.89 Mass of neck 827872943 R 22.1 suprastern al mass: Likely lipoma Health Concerns Section Related Observation LastModified by Organization Detai ls LastModified Time None Recorded Concern Status LastModified by Organization Details LastModified Time None Recorded Advance Directives Directive None Recorded Payers Insurance Date Sequence Insurance Name Policy Number Policy Miguel Covered Member ID Miguel Member ID Guarantor Name 04/15/2024 1 [place] Jay Santiago [id number] Jay Santiago 04/13/2024 2 A[employer] (MEDICARE SUPPLEMENT) Jay Santiago [id number] Jay Santiago Notes Date Note Type Note Provider Name and Address Organization Details Recorded Time 04/13/2024 text/html ROS as noted in the HPI Jay comes in today for consultation at the request of Dr. Tavo Browning for an evaluation of a lump in the throat. Pt feels a knot on the front part of the throat. The soft nodule seems to have presented about 6 months ago. He does have difficulty swallowing certain foods, like bread. Pt drinks a large amount of caffeine daily. He does have a history of kidney stones. DA LOW MD [facility] [place], [address], [facility] 04/13/2024 17:55:14
[2025-01-06 10:03] LABS: Anion Gap 10.6 mEq/L (5-15); Blood Urea Nitrogen 25 mg/dl (9-20); Calcium 9.8 mg/dl (8.4-10.2); Carbon Dioxide 26 mmol/L (22.0-30.0); Chloride 100 mmol/L (98-107); Creatinine,Serum 1.30 mg/dl (0.66-1.25); Estimated Glomerular Filt Rate 54 ml/min (>60); GFR (African American) 66 ML/MIN (>60); Glucose 195 mg/dl (74-100); Potassium 4.6 mmoL/L (3.5-5.1); Sodium 132 mmol/L (136-145)
== END 2025-01-06 23:59 | disposition home or self-care (01) ==
LOC: LAB 08:44
PROVIDERS: PCP Family Medicine; Visit Provider Nurse Practitioner Family
DX: I25.10 Atherosclerotic heart disease of native coronary artery without angina pectoris (principal)
CPT/HCPCS: 36415; 80048

== ENCOUNTER 2025-01-17 11:15 | Outpatient (CLI) | payer MEDICARE, SELFPAY ==
--- NOTE | 2025-01-17 11:17 | XR_ITS ---
FINAL REPORT TECHNIQUE: 3 views right knee CLINICAL HISTORY: VIKRAM knee pain COMPARISON: None FINDINGS: AP, lateral and oblique views of the right knee were obtained. There is no prior exam for comparison. There is no acute osseous abnormality of the right knee. Mild degenerative joint disease is present. The soft tissues are normal. There is no joint effusion. IMPRESSION: Mild degenerative joint disease, with no acute osseous abnormality of the right knee. Reviewed, Interpreted and Dictated by Jazmin Goyal MD Transcribed by Nikole Alvarado Authenticated and [facility]
--- NOTE | 2025-01-17 11:17 | XR_ITS ---
FINAL REPORT CLINICAL HISTORY: hip pain COMPARISON: None FINDINGS: An AP view of the pelvis and a frog leg view of the right hip were obtained. There is no acute fracture or dislocation. Degenerative joint disease is present bilaterally. Remaining osseous pelvis is without acute abnormality. Soft tissues are unremarkable. IMPRESSION: Bilateral hip degenerative joint disease, with no acute osseous abnormality of the right hip. Reviewed, Interpreted and Dictated by Jazmin Goyal MD Transcribed by Nikole Alvarado Authenticated and [facility]
--- NOTE | 2025-01-17 11:17 | XR_ITS ---
FINAL REPORT TECHNIQUE: 3 views left knee CLINICAL HISTORY: Jordon knee pain COMPARISON: None FINDINGS: AP, lateral and oblique views of the left knee were obtained. There is no prior exam for comparison. There is no acute osseous abnormality of the left knee. Mild degenerative joint disease is present. The soft tissues are normal. There is no joint effusion. IMPRESSION: Mild degenerative joint disease, with no acute osseous abnormality of the left knee. Reviewed, Interpreted and Dictated by Jazmin Goyal MD Transcribed by Nikole Alvarado Authenticated and [facility]
--- OUTSIDE RECORDS SUMMARY | 2025-01-17 11:46 | XMS_ITS | Data Portability ---
Author Organization [facility] Address [address] [place] [address] Assessment No assessment recorded. Plan of Treatment [...] By Organization Details Last Modified Time 04/13/2024 [id number] 1. Ordered Bariu m swallow study 2. Ordered CT of the chest 3. F/u with results [email or web address] Not available 04/13/2024 15:26:25 Reason for Referral None Reported. Results Created Date Observation Date Name Description Value Unit Range Abnormal Flag Note LastModifiedBy Organization Detail LastModifiedTime 05/05/1905/04/2024 CT, neck, w/ contr ast No observ ation record ed. [email or web address] [facility] [address], [place], [address], 05/05/2024 08:05:47 Result Notes None recorded. Problems Name Problem SNOMED Code Status Onset Date Resolution Date Notes Provider Name and Address Organization Details Recorded Time Type 2 diabetes mellitus without complicat ion 957078056 Active 2015 From Automated Load;Provi rainer: Robert Yoon: Active Not Available [facility] 7 03:39:00 Incipient senile cataract 012053459 Active 2015 From Automated Load;Provi rainer: Robert [...] Updated DateTime 5 182.88 cm 23.8 kg/m2 17395.3 8 g 97.1 [degF] 85 /min 154/71 mm[Hg] Julia Corley [facility] 15:13:45 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 None recorded. Functional Status None recorded. Mental Status None recorded. Family History Relationship Description Onset Age of this Age Resolved Age Notes LastModified by Organization Details LastModified Time Father Hypertensive disorder spraria Not available 2024 15:15:51 Medical History Condition Response Diabetes Y Arthritis Y Past Encounters Encounter ID Performer Location Encounter Start Date Encounter Closed Date Diagnosis/Indication Diagnosis SNOMED-CT Code Diagnosis ICD10 Code Diagnosis IMO Codes Diagnosis Note [id number] DA LOW MD [place] [facility] [address] [place] [address] 04/13/2024 13:35:53 04/13/2024 15:42:26 Dysphagia 52906195 R13.10 Feeling of lump in throat 140912896 R09.89 Mass of neck 017474180 R 22.1 suprastern al mass: Likely lipoma Health Concerns Section Related Observation LastModified by Organization Detai ls LastModified Time None Recorded Concern Status LastModified by Organization Details LastModified Time None Recorded Advance Directives Directive None Recorded Payers Insurance Date Sequence Insurance Name Policy Number Policy Miguel Covered Member ID Miguel Member ID Guarantor Name 04/15/2024 1 [place] Jay Santiago [id number] Jay Santiago 04/13/2024 2 AARP (MEDICARE SUPPLEMENT) Jay Santiago [id number] Jay Santiago Notes Date Note Type Note [...] history of kidney stones. DA LOW MD [facility] [place], [address], [facility] 04/13/2024 17:55:14
== END 2025-01-17 23:59 | disposition home or self-care (01) ==
LOC: RAD 11:16
PROVIDERS: PCP Family Medicine; Visit Provider Physician Assistant
DX: M17.11 Unilateral primary osteoarthritis, right knee (principal); M17.12 Unilateral primary osteoarthritis, left knee; M16.11 Unilateral primary osteoarthritis, right hip; M16.12 Unilateral primary osteoarthritis, left hip
CPT/HCPCS: 73502; 73562